=== PATIENT | male | born 1935 | race Caucasian/White ===

== ENCOUNTER 2016-07-13 16:15 | Inpatient (IN) | payer MEDICARE ==
[2016-07-13 16:16] VITALS: BMI 26.9
--- NOTE | 2016-07-13 16:24 | C.PDOC ---
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 ED ekg does not shows any st elevations. Pt currently without pain or any other complaints. Time Seen by Provider: 07/13/16 16:16 Chief Complaint (Nursing): Chest Pain History Per: Patient History/Exam Limitations: no limitations Onset/Duration Of Symptoms: Hrs Current Symptoms Are (Timing): Gone Severity: Moderate Quality: "Pain" Modifying Factors: None Nitro Therapy Administered: 1, Per EMS Recent travel outside of the [place]: No Past Medical History Reviewed: Historical Data, Nursing Documentation, Vital Signs Vital Signs: Last Vital Signs Temp 98 F 07/14/16 07:30 Pulse 73 07/14/16 07:30 Resp 20 07/14/16 07:30 BP 116/61 07/14/16 07:30 Pulse Ox 95 07/14/16 08:33 - Medical History PMH: Colonic Polyps, Diabetes, Gastritis, HTN, Hypercholesterolemia Surgical History: CABG, Coronary Stent - [facility] Procedures ESOPHAGOGASTRODUODENOSCOPY [EGD] W/CLOSED BIOPSY (05/01/13) Family History: States: Unknown Family Hx - Social History Hx Tobacco Use: No Hx Alcohol Use: No Hx Substance Use: No - Immunization History Hx Tetanus Toxoid Vaccination: No Hx Influenza Vaccination: Yes Hx Pneumococcal Vaccination: No Review Of Systems Except As Marked, All Systems Reviewed And Found Negative. Constitutional: Negative for: Fever Cardiovascular: Positive for: Chest Pain (currently resolved). Negative for: Palpitations Respiratory: Negative for: Shortness of Breath Gastrointestinal: Negative for: Vomiting Physical Exam - Physical Exam Appears: Non-toxic, No Acute Distress Skin: Warm, Dry, No Rash Head: Atraumatic, Normacephalic Nose: Normal Neck: Normal ROM, Supple Chest: Symmetrical Cardiovascular: Rhythm Regular, No Murmur Respiratory: Normal Breath Sounds, No Rales, No Rhonchi, No Wheezing Gastrointestinal/Abdominal: Soft, No Tenderness Extremity: Bilateral: Atraumatic Neurological/Psych: Oriented x3 ED Course And Treatment - Laboratory Results Result Diagrams: 07/13/16 16:30 07/13/16 16:30 ECG: Interpreted By Me, Viewed By Me Interpretation Of ECG: ST depressions anterior leads, no ST elevations Rate From EC (BPM) O2 Sat by Pulse Oximetry: 95 (on room air) Pulse Ox Interpretation: Normal Medical Decision Making Medical Decision Making: Discussed case with Mendel, will not activate code heart at this time as resolved symptoms, no elevations on ekg in er. . Plan: * EKG * CXR * labs * UA * IV fluids 536: case discussed with dr flores, requests dr heather pinzon to be admitting doctor. 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 pt remains pain free in er. Disposition - Disposition Disposition: HOSPITALIZED Disposition Time: 17:37 Condition: STABLE - Clinical Impression Clinical Impression: NSTEMI (non-ST elevated myocardial infarction) - Scribe Statement The provider has reviewed the documentation as recorded by the Iwonaibsamira Proctor Provider Attestation: All medical record entries made by the Scribe were at my direction and personally dictated by me. I have reviewed the chart and agree that the record accurately reflects my personal performance of the history, physical exam, medical decision making, and the department course for this patient. I have also personally directed, reviewed, and agree with the discharge instructions and disposition. Decision To Admit - Pt Status Changed To: Hospital Disposition Of: Inpatient - Admit Certification Admit to Inpatient:: After my assessment, the patient will require hospitalization for at least two midnights. This is because of the severity of symptoms shown, intensity of services needed, and/or the medical risk in this patient being treated as an outpatient. - InPatient: Physician Admission Certification: I certify that this patient requires 2 or more midnights of care for the following reason:: pt with nstemi, needs heparin , possible cath - . Bed Request Type: Telemetry Admitting Physician: Nely Pinzon Patient Diagnosis: NSTEMI (non-ST elevated myocardial infarction)
[2016-07-13 16:41] LABS: BASO % 0.2 % (0.0-2.0); EOS # 0.1 K/uL (0.0-0.7); HEMATOCRIT 39.7 % (35.0-51.0); LYMPH # 0.4 K/uL (1.0-4.3); LYMPH % 5.5 % (20.0-40.0); MEAN CELL VOLUME 91.9 fL (80.0-94.0); MEAN CORPUSCULAR HEMOGLOBIN 31.3 pg (27.0-31.0); MEAN CORPUSCULAR HGB CONC 34.1 g/dL (33.0-37.0); MEAN PLATELET VOLUME 6.8 fL (7.2-11.7); MONO # 0.4 K/uL (0.0-0.8); MONO % 5.4 % (0.0-10.0); PLATELET COUNT 136 K/uL (130-400); RED CELL DISTRIBUTION WIDTH 13.7 % (11.5-14.5)
[2016-07-13 16:42] LABS: CHLORIDE 99 mmol/L (98-107); POTASSIUM 3.7 mmol/L (3.6-5.2); SODIUM 139 mmol/L (132-148)
[2016-07-13 16:44] LABS: BILIRUBIN,TOTAL 0.4 mg/dL (0.2-1.3); CARBON DIOXIDE 23 mmol/L (22-30); GFR AFRICAN-AMERICAN > 60
[2016-07-13 16:45] LABS: ALB/GLOB RATIO 1.3 (1.0-2.1); ALKALINE PHOSPHATASE 66 U/L (38-126); ALT/SGPT 23 U/L (21-72); AST/SGOT 40 U/L (17-59); BLOOD UREA NITROGEN 16 mg/dL (9-20); CALCIUM 8.5 mg/dl (8.6-10.4); GLUCOSE,RANDOM 158 mg/dL (75-110); TOTAL PROTEIN 7.3 g/dL (6.3-8.3)
--- NOTE | 2016-07-13 16:47 | RAD ---
PROCEDURE: CHEST RADIOGRAPH, 1 VIEW HISTORY: chest pain COMPARISON: None available. FINDINGS: LUNGS: Clear. PLEURA: No pneumothorax or pleural fluid seen. CARDIOVASCULAR: Normal. OSSEOUS STRUCTURES: No significant abnormalities. VISUALIZED UPPER ABDOMEN: Normal. OTHER FINDINGS: None. IMPRESSION: No active disease.
[2016-07-13] MEDS ORDERED: Heparin25000 units/250ml 1/2NS 250 ML IV ONE ×2 (17:06→17:15)
[2016-07-13 17:31] LABS: NEUTROPHIL 80 % (50-75); TOTAL CELLS COUNTED 100
[2016-07-13 17:33] LABS: LARGE PLATELETS PRESENT
--- NOTE | 2016-07-13 21:36 | CP.PCM.CON ---
History of Present Illness - History of Present Illness History of Present Illness: 80 year old with DM, HTN, Mixed hyperlipidemia, WA ? 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 report of ST in the feild, none at ED, no further CP, mildly elevated TNI, good compliance , A1C, LIPIDS. dought [place], observe. yet TNI up to 45 for cath Review of Systems - Constitutional Constitutional: Weakness - EENT Eyes: absent: Discharge Ears: Decreased Hearing. absent: Ear Discharge, Dizziness Nose/Mouth/Throat: absent: Epistaxis - Cardiovascular Cardiovascular: Chest Pain. absent: Acrocyanosis, Diaphoresis, Leg Edema, Palpitations, Syncope - Respiratory Respiratory: absent: Cough, Dyspnea, Hemoptysis - Gastrointestinal Gastrointestinal: absent: Hematochezia, Vomiting - Genitourinary Genitourinary: Change in Urinary Stream Past Patient History - Past Medical History & Family History Past Medical History?: Yes - Past Social History Smoking Status: Former Smoker - CARDIAC Hx Hypercholesterolemia: Yes Hx Hypertension: Yes - PULMONARY Hx Respiratory Disorders: No - NEUROLOGICAL Hx Neurological Disorder: No - HEENT Hx HEENT Problems: Yes Hx Cataracts: Yes - RENAL Hx Chronic Kidney Disease: No - ENDOCRINE/METABOLIC Hx Endocrine Disorders: Yes Hx Diabetes Mellitus Type 2: Yes - HEMATOLOGICAL/ONCOLOGICAL Hx Blood Disorders: No - INTEGUMENTARY Hx Dermatological Problems: No - MUSCULOSKELETAL/RHEUMATOLOGICAL Hx Falls: No - GASTROINTESTINAL Hx Gastritis: Yes - GENITOURINARY/GYNECOLOGICAL Hx Genitourinary Disorders: Yes Hx Prostate Problems: Yes - PSYCHIATRIC Hx Substance Use: No - SURGICAL HISTORY Hx Coronary Artery Bypass Graft: Yes Hx Coronary Stent: Yes - ANESTHESIA Hx Anesthesia: Yes Hx Anesthesia Reactions: No Meds Allergies/Adverse Reactions: Allergies Allergy/AdvReac Type Severity Reaction Status Date / Time No Known Allergies Allergy Verified 08/05/15 08:13 - Medications Medications: Current Medications Aspirin (Aspirin Chewable) 81 mg PO DAILY [facility] Clopidogrel Bisulfate (Plavix) 75 mg PO DAILY [facility] Enoxaparin Sodium (Lovenox) 40 mg SC DAILY [facility] Famotidine (Pepcid) 20 mg PO DAILY [facility] Heparin Sodium/Sodium Chloride (Heparin 08332 Units/250ml 1/2 Normal Saline) 250 mls @ 9.6 mls/hr IV .Q24H ONE; 12 UNITS/KG/HR PRN Reason: Protocol Stop: 07/14/16 17:14 Last Admin: 07/13/16 17:27 Dose: 9.6 mls/hr Lisinopril (Zestril) 5 mg PO DAILY [facility] Metformin HCl (Glucophage) 500 mg PO BID [facility] Pneumococcal Polyvalent Vaccine (Pneumovax 23 Vaccine) 0.5 ml IM .ONCE ONE Stop: 07/16/16 10:01 Rosuvastatin Calcium (Crestor) 5 mg PO HS [facility] Physical Exam - Constitutional Appears: Non-toxic - Head Exam Head Exam: ATRAUMATIC - Eye Exam Eye Exam: EOMI - ENT Exam ENT Exam: Mucous Membranes Moist - Neck Exam Neck exam: Negative for: Lymphadenopathy, Thyromegaly - Respiratory Exam Respiratory Exam: Clear to Auscultation Bilateral. absent: Rales - Cardiovascular Exam Cardiovascular Exam: REGULAR RHYTHM, Systolic Murmur - GI/Abdominal Exam GI & Abdominal Exam: Normal Bowel Sounds. absent: Organomegaly - Rectal Exam Rectal Exam: Deferred - Extremities Exam Extremities exam: Positive for: normal capillary refill. Negative for: calf tenderness - Neurological Exam Neurological exam: Alert, Oriented x3 - Psychiatric Exam Psychiatric exam: Normal Affect - Skin Skin Exam: Dry Results - Vital Signs Recent Vital Signs: Last Vital Signs Temp 97.9 F 07/13/16 20:56 Pulse 81 07/13/16 20:56 Resp 20 07/13/16 20:56 BP 130/74 07/13/16 20:56 Pulse Ox 94 L 07/13/16 20:56 - Labs Result Diagrams: 07/13/16 16:30 07/13/16 16:30 Labs: Laboratory Results - last 24 hr 07/13/16 20:59 POC Glucose (mg/dL) 197 H Assessment & Plan (1) Elevated troponin I measurement Status: Acute Comment: acute NTEMI (2) Diabetes 1.5, managed as type 2 Status: Chronic (3) Hypertension Status: Chronic
[2016-07-13 22:34] LABS: RBC URINE 2 /hpf (0-3); URINE BILIRUBIN NEGATIVE (NEGATIVE); URINE BLOOD NEGATIVE (NEGATIVE); URINE COLOR Yellow (YELLOW); URINE GLUCOSE (UA) NORMAL (Normal); URINE KETONE NEGATIVE (NEGATIVE); URINE LEUKOCYTE ESTERASE NEG Leu/uL (Negative); URINE PROTEIN NEGATIVE (NEGATIVE); URINE UROBILINOGEN NORMAL mg/dL (0.2-1.0); WBC URINE 2 /hpf (0-5)
[2016-07-14] MEDS ORDERED: Aluminum Hydroxide/Magnesium Hydroxide Susp (30 mL) PO ONE (00:15)
[2016-07-14] MEDS ORDERED: Heparin25000 units/250ml 1/2NS 250 ML IV ONE ×2 (02:15→16:30)
[2016-07-14] MEDS ORDERED: Enoxaparin 40 mg Syringe SC SCH (10:00)
[2016-07-14 11:29] LABS: THYROID STIMULATING HORMONE 0.94 mIU/L (0.46-4.68)
--- NOTE | 2016-07-14 14:41 | CARDCATH ---
PROCEDURE DATE: 07/14/2016 The patient is a 80-year-old [place]cu[place] male who has history of hypertension, diabetes mellitus, nieves ry artery disease with stenting to the LAD and the right coronary artery many years ago. He presents because of chest discomfort after cleaning snow from his window. [id number] myocardial infarc tion is ruled in. Cardiac catheterization was recommended. The procedure and its risks fully explai staci to the patient who understood them and agreed for the procedure. PROCEDURES: Left and right coronary angiography were performed with 6-Ethiopian JL4 and JR4 diagnostic catheter. Left ventriculogram and aortogram were performed with 6-Ethiopian pigtail catheter. The fernando ent tolerated the procedure well. ANGIOGRAPHIC FINDINGS: Selective injection of left coronary artery revealed a minimal narrowing of t he left main that bifurcated into medium sized LAD and medium sized codominant circumflex artery. Th e LAD had 80% proximal stenosis just before the stent in the mid LAD. The first and second diagonal branch ostia had 80% stenosis. The first septal electrotype caster had critical stenosis in its ostium. The circumflex artery had a complex critical lesion involving its entire middle segment and involving th e second and third obtuse marginal branches. This appears to be the culprit lesion for the patient's recent acute myocardial infarction. Selective injection of right coronary artery revealed a medium- sized dominant vessel that has insignificant proximal narrowing with patent distal stent. Left ventr iculogram performed in [place]LL projection revealed inferior wall hypokinesis. Overall, ejection fraction estimated at 50%. Aortography performed in SERBIAN projection revealed no evidence of aortic insufficie ncy or dissection. CONCLUSION: 1. 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 It is the culprit lesion for the recent acute myocardial infarction. 2. An 80% stenosis of the proximal left anterior descending just before the mid left anterior descen ding stent involving the ostium of the first diagonal branch. RECOMMENDATIONS: The case will be discussed with Dr. Min, the primary warehouse trainer. The choice b etween coronary intervention on the circumflex artery or a bypass surgery for the LAD, circumflex, di agonal and obtuse marginal branches. Garett Diggs MD cc:Veronica Min MD [id number] TT: 07/14/2016 14:40:13 mn
--- NOTE | 2016-07-14 17:32 | CP.PCM.PN ---
Subjective - Date & Time of Evaluation Date of Evaluation: 07/14/16 Time of Evaluation: 09:00 - Subjective Subjective: Dr. Richie Lee service Patient is seen and examined in room with family members present. He says he currently has some mild chest discomfort however his pain before he came to the hospital was much worse. He has had 2 previous heart attacks, the last one 10 years ago and the first one 23 years ago both times happening in [place]. He has had stents placed each time. He currently denies shortness of breath, palpitations, lower leg swelling, diaphoresis, nausea, or vomiting. Objective - Vital Signs/Intake and Output Vital Signs (last 24 hours): Temp Pulse Resp BP Pulse Ox 98.9 F 66 25 H 112/52 L 93 L 07/14/16 15:40 07/14/16 15:47 07/14/16 15:47 07/14/16 15:48 07/14/16 15:47 Intake and Output: 07/14/16 07/14/16 06:59 18:59 Intake Total 504.8 300 Output Total 700 Balance -195.2 300 - Medications Medications: Current Medications Aspirin (Aspirin Chewable) 81 mg PO DAILY [facility] Last Admin: 07/14/16 10:35 Dose: 81 mg Clopidogrel Bisulfate (Plavix) 75 mg PO DAILY [facility] Last Admin: 07/14/16 10:30 Dose: 75 mg Famotidine (Pepcid) 20 mg PO DAILY [facility] Last Admin: 07/14/16 10:30 Dose: 20 mg Heparin Sodium/Sodium Chloride (Heparin 77750 Units/250ml 1/2 Normal Saline) 250 mls @ 5.879 mls/hr IV .Q24H ONE; 9 UNITS/KG/HR PRN Reason: Protocol Stop: 07/15/16 16:29 Last Admin: 07/14/16 16:26 Dose: 5.879 mls/hr Lisinopril (Zestril) 5 mg PO DAILY [facility] Last Admin: 07/14/16 10:33 Dose: 5 mg Pneumococcal Polyvalent Vaccine (Pneumovax 23 Vaccine) 0.5 ml IM .ONCE ONE Stop: 07/16/16 10:01 Rosuvastatin Calcium (Crestor) 5 mg PO HS [facility] - Labs Labs: PT 11.4 SECONDS (9.7-12.2) 07/13/16 16:30 INR 1.0 07/13/16 16:30 APTT 55 SECONDS (21-34) H D 07/14/16 10:34 - Constitutional Appears: Non-toxic, No Acute Distress - Head Exam Head Exam: NORMAL INSPECTION - Eye Exam Eye Exam: Normal appearance, PERRL Pupil Exam: NORMAL ACCOMODATION - ENT Exam ENT Exam: Normal Exam - Respiratory Exam Respiratory Exam: Clear to Ausculation Bilateral. absent: Rales, Rhonchi, Wheezes - Cardiovascular Exam Cardiovascular Exam: REGULAR RHYTHM, RRR, +S1, +S2. 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 He is on Aspirin and Plavix as well. Crestor 5mg Status: Acute (2) Hypertension Assessment & Plan: Lisinopril for BP control Status: Chronic (3) Prophylactic measure Status: Acute
--- NOTE | 2016-07-14 18:10 | CP.PCM.CON ---
<Marc Ambrose - Last Filed: 07/14/16 20:27> History of Present Illness - History of Present Illness History of Present Illness: CRITICAL CARE PROGRESS NOTE HPI: 80 M with past medical history of HTN, DM, CAD, BPH and OR with stents to the LAD and right coronary artery placed approximately 1992 and 2001 presented with diaphoresis and intermittent chest discomfort after clearing snow from window 07/13. Patient states that he has had two heart attacks in the past where he initially presented with diaphoresis and thus on this present occasion , he knew that something was wrong. Patient denies dyspnea, shortness of breath , palpitations, paresthesias, radiation of pain, nausea, vomiting, diarrhea, constipation or headaches at this time. PMHx- as mentioned above PSHx- as mentioned above Fam hx- Mom had cancer, dad had liver cancer, sister has bone cancer and DM Meds- unknown Allergies- NKDA PMD- unknown In the ED: EKG showed NSR @ 64 bpm with inferior infarct of undetermined age. Angiogram ruled in NSTEMI. Left and right coronary angiography was done by Dr. Diggs with a 6 Bruneian JL4 and JR4 diagnostic catheter. Ejection fraction is estimated to be 50%. Review of Systems - Constitutional Constitutional: absent: Night Sweats, Snoring - EENT Eyes: absent: Change in Vision Nose/Mouth/Throat: absent: Nasal Congestion, Nasal Discharge - Cardiovascular Cardiovascular: Chest Pain, Diaphoresis. absent: Chest Pain at Rest - Respiratory Respiratory: absent: Cough, Dyspnea, Wheezing - Gastrointestinal Gastrointestinal: Bloating - Musculoskeletal Musculoskeletal: absent: Arthralgias, Back Pain - Neurological Neurological: absent: Abnormal Gait, Abnormal Hearing - Psychiatric Psychiatric: absent: Abnormal Sleep Pattern - Endocrine Endocrine: absent: Change in Body Appearance Past Patient History - Past Medical History & Family History Past Medical History?: Yes - Past Social History Smoking Status: Former Smoker - CARDIAC Hx Hypercholesterolemia: Yes Hx Hypertension: Yes - PULMONARY Hx Respiratory Disorders: No - NEUROLOGICAL Hx Neurological Disorder: No - HEENT Hx HEENT Problems: Yes Hx Cataracts: Yes - RENAL Hx Chronic Kidney Disease: No - ENDOCRINE/METABOLIC Hx Endocrine Disorders: Yes Hx Diabetes Mellitus Type 2: Yes - HEMATOLOGICAL/ONCOLOGICAL Hx Blood Disorders: No - INTEGUMENTARY Hx Dermatological Problems: No - MUSCULOSKELETAL/RHEUMATOLOGICAL Hx Falls: No - GASTROINTESTINAL Hx Gastritis: Yes - GENITOURINARY/GYNECOLOGICAL Hx Genitourinary Disorders: Yes Hx Prostate Problems: Yes - PSYCHIATRIC Hx Substance Use: No - SURGICAL HISTORY Hx Coronary Artery Bypass Graft: Yes Hx Coronary Stent: Yes - ANESTHESIA Hx Anesthesia: Yes Hx Anesthesia Reactions: No Meds Allergies/Adverse Reactions: Allergies Allergy/AdvReac Type Severity Reaction Status Date / Time No Known Allergies Allergy Verified 08/05/15 08:13 - Medications Medications: Current Medications Aspirin (Aspirin Chewable) [address] [facility] Last Admin: 07/14/16 10:35 Dose: 81 mg Clopidogrel Bisulfate (Plavix) [address] [facility] Last Admin: 07/14/16 10:30 Dose: 75 mg Famotidine (Pepcid) [address] [facility] Last Admin: 07/14/16 10:30 Dose: 20 mg Heparin Sodium/Sodium Chloride (Heparin 63009 Units/250ml 1/2 Normal Saline) 250 mls @ 5.879 mls/hr IV .Q24H ONE; 9 UNITS/KG/HR PRN Reason: Protocol Stop: 07/15/16 16:29 Last Admin: 07/14/16 16:26 Dose: 5.879 mls/hr Lisinopril (Zestril) [address] [facility] Last Admin: 07/14/16 10:33 Dose: 5 mg Pneumococcal Polyvalent Vaccine (Pneumovax 23 Vaccine) 0.5 ml IM .ONCE ONE Stop: 07/16/16 10:01 Rosuvastatin Calcium (Crestor) 5 mg PO [facility] Physical Exam - Constitutional Appears: Non-toxic, No Acute Distress - Head Exam Head Exam: ATRAUMATIC, NORMAL INSPECTION, NORMOCEPHALIC - Eye Exam Eye Exam: EOMI, Normal appearance, PERRL Pupil Exam: NORMAL ACCOMODATION - ENT Exam ENT Exam: Mucous Membranes Moist - Neck Exam Neck exam: Positive for: Full Rom - Respiratory Exam Respiratory Exam: NORMAL BREATHING PATTERN. absent: Wheezes - Cardiovascular Exam Cardiovascular Exam: REGULAR RHYTHM, +S1, +S2 - GI/Abdominal Exam GI & Abdominal Exam: Hyperactive Bowel Sounds, Soft. absent: Distended, Firm, Guarding - Extremities Exam Extremities exam: Positive for: full ROM, normal capillary refill, tenderness, pedal pulses present - Neurological Exam Neurological exam: Alert, CN II-XII Intact, Oriented x3 - Psychiatric Exam Psychiatric exam: Normal Affect, Normal Mood - Skin Skin Exam: Dry, Normal Color, Warm Results - Vital Signs Recent Vital Signs: Last Vital Signs Temp 98.6 F 07/14/16 17:55 Pulse 87 07/14/16 18:00 Resp 13 07/14/16 18:00 BP 100/47 L 07/14/16 18:00 Pulse Ox 95 07/14/16 18:00 - Labs Result Diagrams: 07/13/16 16:30 07/13/16 16:30 Labs: Laboratory Results - last 24 hr 07/13/16 07/13/16 07/14/16 20:59 22:22 00:05 APTT 123 H* D POC Glucose (mg/dL) 197 H Hemoglobin A1c Phosphorus Magnesium Total Creatine Kinase 2603 H CK-MB (Mass) 197 H Troponin I, Quant 46.1000 H* Free T4 TSH 3rd Generation Urine Color Yellow Urine Clarity Clear Urine pH 5.0 Ur Specific [place] 1.026 Urine Protein Negative Urine Glucose (UA) Normal Urine Ketones Negative Urine Blood Negative Urine Nitrate Negative Urine Bilirubin Negative Urine Urobilinogen Normal Ur Leukocyte Esterase Neg Urine WBC (Auto) 2 Urine RBC (Auto) 2 07/14/16 07/14/16 07/14/16 06:17 10:34 11:23 APTT 55 H D POC Glucose (mg/dL) 128 H 107 Hemoglobin A1c 6.4 Phosphorus 3.0 Magnesium 2.0 Total Creatine Kinase 1151 H CK-MB (Mass) 97.0 H Troponin I, Quant 32.3000 H* Free T4 0.84 TSH 3rd Generation 0.94 Urine Color Urine Clarity Urine pH Ur Specific [place] Urine Protein Urine Glucose (UA) Urine Ketones Urine Blood Urine Nitrate Urine Bilirubin Urine Urobilinogen Ur Leukocyte Esterase Urine WBC (Auto) Urine RBC (Auto) Assessment & Plan - Assessment and Plan (Free Text) Assessment: Patient is a 80 M with extensive cardiac history inclusive of two prior stents to the LAD and right coronary artery presents with diaphoresis and chest discomfort. Patient s/p angiogram with findings of a complex lesion of the entire mid-circumflex artery segment and 80% stenosis of proximal LAD before the mid LAD stent. Estimated EF of 50%. Patient admitted to the ICU for close monitoring. Plan: Neuro: Neurochecks q6 Cardio: HTN Possible NSTEMI Troponin I 46.1000>32.3000 CK-MB 197>97.0 Creatine Kinase 2603>1151 Procedures: 07/14 Angiogram: Dr. Diggs - Complex lesion of the entire mid- circumflex artery segment. 80% stenosis of proximal LAD before the mid LAD stent involving the ostium of the first diagonal branch. Estimated EF 50% Imagin/16 EKG: NSR @ 64 bpm with inferior infarct of undetermined age. 07/[address] Min report of ST in the field. Non at the ED. No further CP, mildly elevated TNI, good compliance, A1c, lipids, doubt OR, observe. Crestor 5 mg PO HS [facility], Lopressor 25 mg BID ( hold parameters for systolic below 100 and HR below 60),Zestril 5 mg PO daily Cardiology on board- F/U recommendations Pulmonary: Maintain O2 Sat >92% Endo: HbA1c 6.4 Maintain euglycemia Novolin sliding scale Acchucheck q4 GI: Diabetic Diet : I/Os 504.8/700 = -195.2 (not 24H) Monitor I/Os Renal: BUN/Cr: 16/0.6 (07/13) Monitor I/Os Daily CMP Heme: PTT: 123>55 Daily CBC MSK: Monitor angiography entrance site for signs of hematoma, drainage, erythema, or infection. Dressing changes Prophylaxis: DVT: ASA 82 mg PO daily, Clopidogrel 75mg PO daily, Heparin drip, NS 250 cc @ 7.2 cc/hr IV Q24H GI: Protonix daily <Tarik Frost - Last Filed: 07/21/16 01:07> Results - Vital Signs Recent Vital Signs: Last Vital Signs Temp 97.3 F L 07/18/16 12:00 Pulse 67 07/18/16 15:00 Resp 17 07/18/16 15:00 BP 101/57 L 07/18/16 14:52 Pulse Ox 97 07/18/16 15:00 - Labs Result Diagrams: 07/18/16 06:30 07/18/16 06:30 Attending/Attestation - Attestation I have personally seen and examined this patient.: Yes I have fully participated in the care of the patient.: Yes I have reviewed all pertinent clinical information: Yes Notes (Text): Today: Thursday, July 14, 2016 The Patient was seen and examined at the bedside, Medical records reviewed, all clinical/lab/hemodynamic/radiographic data were reviewed and management issues were discussed and formulated, Events reviewed Pain issues, skin care, head of the bed elevation, glycemic control were addressed Agree with above treatment plans as transcribed in Dr. Halie whittaker
--- NOTE | 2016-07-14 18:27 | CP.PCM.PN ---
Subjective - Date & Time of Evaluation Date of Evaluation: 07/14/16 Time of Evaluation: 12:00 - Subjective Subjective: clinically same Objective - Vital Signs/Intake and Output Vital Signs (last 24 hours): Temp Pulse Resp BP Pulse Ox 98.6 F 87 13 100/47 L 95 07/14/16 17:55 07/14/16 18:00 07/14/16 18:00 07/14/16 18:00 07/14/16 18:00 Intake and Output: 07/14/16 07/14/16 06:59 18:59 Intake Total 504.8 411.8 Output Total 700 150 Balance -195.2 261.8 - Medications Medications: Current Medications Aspirin (Aspirin Chewable) 81 mg PO DAILY [facility] Last Admin: 07/14/16 10:35 Dose: 81 mg Clopidogrel Bisulfate (Plavix) 75 mg PO DAILY [facility] Last Admin: 07/14/16 10:30 Dose: 75 mg Docusate Sodium (Colace) 100 mg PO DAILY [facility] Heparin Sodium/Sodium Chloride (Heparin 73081 Units/250ml 1/2 Normal Saline) 250 mls @ 5.879 mls/hr IV .Q24H ONE; 9 UNITS/KG/HR PRN Reason: Protocol Stop: 07/15/16 16:29 Last Admin: 07/14/16 16:26 Dose: 5.879 mls/hr Lisinopril (Zestril) 5 mg PO DAILY [facility] Last Admin: 07/14/16 10:33 Dose: 5 mg Metoprolol Tartrate (Lopressor) 25 mg PO BID [facility] Pantoprazole Sodium (Protonix Ec Tab) 40 mg PO DAILY [facility] Pneumococcal Polyvalent Vaccine (Pneumovax 23 Vaccine) 0.5 ml IM .ONCE ONE Stop: 07/16/16 10:01 Rosuvastatin Calcium (Crestor) 5 mg PO HS [facility] - Labs Labs: PT 11.4 SECONDS (9.7-12.2) 07/13/16 16:30 INR 1.0 07/13/16 16:30 APTT 55 SECONDS (21-34) H D 07/14/16 10:34 - Constitutional Appears: Well - Head Exam Head Exam: ATRAUMATIC, NORMAL INSPECTION, NORMOCEPHALIC - Eye Exam Eye Exam: EOMI, Normal appearance, PERRL Pupil Exam: NORMAL ACCOMODATION, PERRL - ENT Exam ENT Exam: Mucous Membranes Moist, Normal Exam - Neck Exam Neck Exam: Full ROM, Normal Inspection. absent: Lymphadenopathy - Respiratory Exam Respiratory Exam: Decreased Breath Sounds - Cardiovascular Exam Cardiovascular Exam: REGULAR RHYTHM, +S1, +S2 - GI/Abdominal Exam GI & Abdominal Exam: Soft, Diminished Bowel Sounds - Rectal Exam Rectal Exam: Deferred
--- NOTE | 2016-07-14 18:36 | CP.PCM.PN ---
Subjective - Date & Time of Evaluation Date of Evaluation: 07/14/16 Time of Evaluation: 12:00 - Subjective Subjective: NSTEMI cath with diseased LAD and Circ now ICU for intervention Objective - Vital Signs/Intake and Output Vital Signs (last 24 hours): Temp Pulse Resp BP Pulse Ox 98.6 F 87 13 100/47 L 95 07/14/16 17:55 07/14/16 18:00 07/14/16 18:00 07/14/16 18:00 07/14/16 18:00 Intake and Output: 07/14/16 07/14/16 06:59 18:59 Intake Total 504.8 411.8 Output Total 700 150 Balance -195.2 261.8 - Medications Medications: Current Medications Aspirin (Aspirin Chewable) 81 mg PO DAILY [facility] Last Admin: 07/14/16 10:35 Dose: 81 mg Clopidogrel Bisulfate (Plavix) 75 mg PO DAILY [facility] Last Admin: 07/14/16 10:30 Dose: 75 mg Docusate Sodium (Colace) 100 mg PO DAILY [facility] Heparin Sodium/Sodium Chloride (Heparin 37216 Units/250ml 1/2 Normal Saline) 250 mls @ 5.879 mls/hr IV .Q24H ONE; 9 UNITS/KG/HR PRN Reason: Protocol Stop: 07/15/16 16:29 Last Admin: 07/14/16 16:26 Dose: 5.879 mls/hr Lisinopril (Zestril) 5 mg PO DAILY [facility] Last Admin: 07/14/16 10:33 Dose: 5 mg Metoprolol Tartrate (Lopressor) 25 mg PO BID [facility] Pantoprazole Sodium (Protonix Ec Tab) 40 mg PO DAILY [facility] Pneumococcal Polyvalent Vaccine (Pneumovax 23 Vaccine) 0.5 ml IM .ONCE ONE Stop: 07/16/16 10:01 Rosuvastatin Calcium (Crestor) 5 mg PO HS [facility] - Labs Labs: PT 11.4 SECONDS (9.7-12.2) 07/13/16 16:30 INR 1.0 07/13/16 16:30 APTT 55 SECONDS (21-34) H D 07/14/16 10:34 - Constitutional Appears: Non-toxic - Head Exam Head Exam: ATRAUMATIC - Eye Exam Eye Exam: EOMI - ENT Exam ENT Exam: Mucous Membranes Moist - Neck Exam Neck Exam: absent: Lymphadenopathy, Thyromegaly - Respiratory Exam Respiratory Exam: Clear to Ausculation Bilateral. absent: Rales - Cardiovascular Exam Cardiovascular Exam: REGULAR RHYTHM, Murmur - GI/Abdominal Exam GI & Abdominal Exam: Normal Bowel Sounds. absent: Organomegaly - Rectal Exam Rectal Exam: Deferred - Extremities Exam Extremities Exam: Normal Capillary Refill. absent: Calf Tenderness - Neurological Exam Neurological Exam: Alert, Oriented x3 - Psychiatric Exam Psychiatric exam: Normal Affect - Skin Skin Exam: Dry Assessment and Plan (1) Elevated troponin I measurement Status: Acute (2) Diabetes 1.5, managed as type 2 Status: Chronic (3) Hypertension Status: Chronic
[2016-07-15 06:45] LABS: BASO % 0.2 % (0.0-2.0); EOS # 0.1 K/uL (0.0-0.7); HEMATOCRIT 40.7 % (35.0-51.0); LYMPH # 0.9 K/uL (1.0-4.3); LYMPH % 17.3 % (20.0-40.0); MEAN CELL VOLUME 92.3 fL (80.0-94.0); MEAN CORPUSCULAR HEMOGLOBIN 31.5 pg (27.0-31.0); MEAN CORPUSCULAR HGB CONC 34.2 g/dL (33.0-37.0); MONO # 0.5 K/uL (0.0-0.8); MONO % 10.7 % (0.0-10.0); RED CELL DISTRIBUTION WIDTH 13.9 % (11.5-14.5); WHITE BLOOD COUNT 5.1 K/uL (4.8-10.8)
[2016-07-15 07:06] LABS: CHLORIDE 101 mmol/L (98-107)
[2016-07-15 07:07] LABS: POTASSIUM 3.6 mmol/L (3.6-5.2); SODIUM 136 mmol/L (132-148)
[2016-07-15 07:09] LABS: BILIRUBIN,TOTAL 0.5 mg/dL (0.2-1.3); GFR AFRICAN-AMERICAN > 60
[2016-07-15 07:10] LABS: ALB/GLOB RATIO 1.1 (1.0-2.1); ALKALINE PHOSPHATASE 58 U/L (38-126); ALT/SGPT 43 U/L (21-72); AST/SGOT 122 U/L (17-59); BLOOD UREA NITROGEN 11 mg/dL (9-20); CALCIUM 8.5 mg/dl (8.6-10.4); CARBON DIOXIDE 26 mmol/L (22-30); GLUCOSE,RANDOM 99 mg/dL (75-110); PHOSPHOROUS 2.6 mg/dL (2.5-4.5); TOTAL PROTEIN 6.6 g/dL (6.3-8.3)
[2016-07-15] MEDS: Pantoprazole 40 mg EC Tab PO SCH (09:08)
[2016-07-15] MEDS ORDERED: Potassium Chloride 20 mEq ER Tab PO ONE (10:15)
--- NOTE | 2016-07-15 14:40 | CP.PCM.PN ---
Subjective - Date & Time of Evaluation Date of Evaluation: 07/15/16 Time of Evaluation: 11:20 - Subjective Subjective: clinically same Objective - Vital Signs/Intake and Output Vital Signs (last 24 hours): Temp Pulse Resp BP Pulse Ox 99.2 F 88 26 H 107/64 94 L 07/15/16 12:00 07/15/16 13:01 07/15/16 13:01 07/15/16 13:01 07/15/16 13:01 Intake and Output: 07/15/16 07/15/16 06:59 18:59 Intake Total 170.8 411.3 Output Total 500 250 Balance -329.2 161.3 - Medications Medications: Current Medications Aspirin (Aspirin Chewable) 81 mg PO DAILY [facility] Last Admin: 07/15/16 09:09 Dose: 81 mg Clopidogrel Bisulfate (Plavix) 75 mg PO DAILY [facility] Last Admin: 07/15/16 09:09 Dose: 75 mg Docusate Sodium (Colace) 100 mg PO DAILY [facility] Last Admin: 07/15/16 09:08 Dose: 100 mg Heparin Sodium/Sodium Chloride (Heparin 31008 Units/250ml 1/2 Normal Saline) 250 mls @ 5.879 mls/hr IV .Q24H ONE; 9 UNITS/KG/HR PRN Reason: Protocol Stop: 07/15/16 16:29 Last Admin: 07/14/16 16:26 Dose: 5.879 mls/hr Lisinopril (Zestril) 5 mg PO DAILY [facility] Last Admin: 07/15/16 09:08 Dose: 5 mg Metoprolol Tartrate (Lopressor) 25 mg PO BID [facility] Last Admin: 07/15/16 09:09 Dose: 25 mg Pantoprazole Sodium (Protonix Ec Tab) 40 mg PO DAILY [facility] Last Admin: 07/15/16 09:08 Dose: 40 mg Pneumococcal Polyvalent Vaccine (Pneumovax 23 Vaccine) 0.5 ml IM .ONCE ONE Stop: 07/16/16 10:01 Rosuvastatin Calcium (Crestor) 5 mg PO HS [facility] Last Admin: 07/14/16 21:40 Dose: 5 mg - Labs Labs: 07/15/16 06:36 07/15/16 06:36 PT 11.4 SECONDS (9.7-12.2) 07/13/16 16:30 INR 1.0 07/13/16 16:30 APTT 45 SECONDS (21-34) H 07/15/16 06:36 - Constitutional Appears: Well - Head Exam Head Exam: ATRAUMATIC, NORMAL INSPECTION, NORMOCEPHALIC - Eye Exam Eye Exam: EOMI, Normal appearance, PERRL Pupil Exam: NORMAL ACCOMODATION, PERRL - ENT Exam ENT Exam: Mucous Membranes Moist, Normal Exam - Neck Exam Neck Exam: Full ROM, Normal Inspection. absent: Lymphadenopathy - Respiratory Exam Respiratory Exam: Decreased Breath Sounds - Cardiovascular Exam Cardiovascular Exam: REGULAR RHYTHM, +S1, +S2 - GI/Abdominal Exam GI & Abdominal Exam: Soft, Diminished Bowel Sounds - Rectal Exam Rectal Exam: Deferred
--- NOTE | 2016-07-15 17:01 | PN ---
DATE: 07/15/2016 The patient denies any chest pain or shortness of breath. No reported groin bleeding. No reported v entricular arrhythmia. VITAL SIGNS: Blood pressure 106/57, heart rate 72, temperature 98.7, respiration 27. HENT: Normocephalic. NECK: No JVD. CHEST: Clear. HEART: S1, S2 regular. EXTREMITIES: No edema. LABORATORIES: Today's SMA-7 is within normal limits except for creatinine of 0.7, calcium is 8.5. ASSESSMENT: 1. 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 2. Diabetes mellitus and hypertension. RECOMMENDATIONS: Continue current aspirin 81 mg once a day, Crestor at 5 mg once a day, Lopressor 25 mg once a day, Restoril at 5 mg once a day. Start Plavix 75 mg orally once a day. The case was discussed with Dr. Min, and recommendation was to perform PCI to circumflex artery M on at [facility]. Garett Diggs MD cc: [id number] TT: 07/15/2016 17:00:01 Confirmation # [id number] Dictation # [id number]
--- NOTE | 2016-07-15 17:52 | CP.PCM.PN ---
Subjective - Date & Time of Evaluation Date of Evaluation: 07/15/16 Time of Evaluation: 14:00 - Subjective Subjective: no CP on heparin, PCI at [facility] [place] Circ on Mond Objective - Vital Signs/Intake and Output Vital Signs (last 24 hours): Temp Pulse Resp BP Pulse Ox 98.7 F 84 13 104/57 L 93 L 07/15/16 16:00 07/15/16 17:00 07/15/16 17:00 07/15/16 17:00 07/15/16 17:00 Intake and Output: 07/15/16 07/15/16 06:59 18:59 Intake Total 170.8 554.9 Output Total 500 850 Balance -329.2 -295.1 - Medications Medications: Current Medications Aspirin (Aspirin Chewable) 81 mg PO DAILY [facility] Last Admin: 07/15/16 09:09 Dose: 81 mg Clopidogrel Bisulfate (Plavix) 75 mg PO DAILY [facility] Last Admin: 07/15/16 09:09 Dose: 75 mg Docusate Sodium (Colace) 100 mg PO DAILY [facility] Last Admin: 07/15/16 09:08 Dose: 100 mg Lisinopril (Zestril) 5 mg PO DAILY [facility] Last Admin: 07/15/16 09:08 Dose: 5 mg Metoprolol Tartrate (Lopressor) 25 mg PO BID [facility] Last Admin: 07/15/16 09:09 Dose: 25 mg Pantoprazole Sodium (Protonix Ec Tab) 40 mg PO DAILY [facility] Last Admin: 07/15/16 09:08 Dose: 40 mg Pneumococcal Polyvalent Vaccine (Pneumovax 23 Vaccine) 0.5 ml IM .ONCE ONE Stop: 07/16/16 10:01 Rosuvastatin Calcium (Crestor) 5 mg PO [facility] Last Admin: 07/14/16 21:40 Dose: 5 mg - Labs Labs: 07/15/16 06:36 07/15/16 06:36 PT 11.4 SECONDS (9.7-12.2) 07/13/16 16:30 INR 1.0 07/13/16 16:30 APTT 45 SECONDS (21-34) H 07/15/16 06:36 - Constitutional Appears: Non-toxic - Head Exam Head Exam: ATRAUMATIC - Eye Exam Eye Exam: EOMI - ENT Exam ENT Exam: Mucous Membranes Moist - Neck Exam Neck Exam: absent: Lymphadenopathy, Thyromegaly - Respiratory Exam Respiratory Exam: absent: Rales - Cardiovascular Exam Cardiovascular Exam: REGULAR RHYTHM, Murmur - GI/Abdominal Exam GI & Abdominal Exam: Normal Bowel Sounds. absent: Organomegaly - Rectal Exam Rectal Exam: Deferred - Extremities Exam Extremities Exam: Normal Capillary Refill. absent: Calf Tenderness - Neurological Exam Neurological Exam: Alert, Oriented x3 - Psychiatric Exam Psychiatric exam: Normal Mood - Skin Skin Exam: Dry Assessment and Plan (1) Elevated troponin I measurement Status: Acute (2) Diabetes 1.5, managed as type 2 Status: Chronic (3) Hypertension Status: Chronic
--- NOTE | 2016-07-15 22:24 | CP.CCUPN ---
CCU Subjective - Physician Review Events Since Last Encounter (Free Text): 07/15/16 22:20 Patient is a 80 M with extensive cardiac history inclusive of two prior stents to the LAD and right coronary artery presents with diaphoresis and chest discomfort. Patient s/p angiogram with findings of a complex lesion of the entire mid-circumflex artery segment and 80% stenosis of proximal LAD before the mid LAD stent. Estimated EF of 50%. Patient admitted to the ICU for close monitoring. Patient lying comfortably in no acute distress Denies shortness of breath, denies chest pain Possible transfer to [facility] on Sunday CCU Objective - Vital Signs / Intake & Output Vital Signs (Last 4 hours): Vital Signs Pulse Resp BP Pulse Ox 07/15/16 20:00 78 30 H 97/35 L 91 L 07/15/16 19:03 79 30 H 91 L 07/15/16 19:00 80 20 93/44 L 92 L 07/15/16 18:21 85 22 105/62 92 L Intake and Output (Last 8hrs): Intake & Output 07/15/16 07/15/16 07/15/16 06:59 14:59 22:59 Intake Total 47.2 417.2 355.4 Output Total 400 450 700 Balance -352.8 -32.8 -344.6 Weight 144 lb Intake: Intake, IV Amount 47.2 47.2 35.4 Left Forearm 47.2 47.2 35.4 Oral 370 320 Output: Urine 400 450 700 Urine, Voided 400 450 700 Other: # Voids Urine, Voided 1 1 1 # Bowel Movements 1 0 0 - Physical Exam Head: Positive for: Atraumatic, Normocephalic Pupils: Positive for: PERRL Extroacular Muscles: Positive for: EOMI Conjunctiva: Positive for: Normal Mouth: Positive for: Moist Mucous Membranes Neck: Positive for: Normal Range of Motion Respiratory/Chest: Positive for: Clear to Auscultation Cardiovascular: Positive for: Regular Rate and Rhythm Abdomen: Positive for: Normal Bowel Sounds Upper Extremity: Positive for: Normal Inspection Lower Extremity: Positive for: Normal Inspection Psychiatric: Positive for: Alert, Oriented x 3 - Medications Active Medications: Active Medications Generic Name Dose Route Start Last Admin Trade Name Freq PRN Reason Stop Dose Admin Aspirin 81 mg 07/14/16 10:00 07/15/16 09:09 Aspirin Chewable PO 81 mg DAILY [facility] Administration Clopidogrel Bisulfate 75 mg 07/14/16 10:00 07/15/16 09:09 Plavix PO 75 mg DAILY [facility] Administration Docusate Sodium 100 mg 07/15/16 10:00 07/15/16 09:08 Colace PO 100 mg DAILY [facility] Administration Lisinopril 5 mg 07/14/16 10:00 07/15/16 09:08 Zestril PO 5 mg DAILY [facility] Administration Metoprolol Tartrate 25 mg 07/15/16 10:00 07/15/16 17:53 Lopressor PO 25 mg BID [facility] Administration Pantoprazole Sodium 40 mg 07/15/16 10:00 07/15/16 09:08 Protonix Ec Tab PO 40 mg DAILY [facility] Administration Pneumococcal Polyvalent Vaccine 0.5 ml 07/16/16 10:00 Pneumovax 23 Vaccine IM 07/16/16 10:01 .ONCE ONE Rosuvastatin Calcium 5 mg 07/14/16 22:00 07/15/16 21:43 Crestor PO 5 mg HS [facility] Administration - Patient Studies Lab Studies: Microbiology Studies 07/14/16 Unknown MRSA Culture (Admit) - Final Nose MRSA NOT DETECTED Lab Studies 07/15/16 07/15/16 07/15/16 Range/Units 21:30 19:37 17:14 WBC (4.8-10.8) K/uL RBC (4.40-5.90) Mil/uL Hgb (12.0-18.0) g/dL Hct (35.0-51.0) % MCV (80.0-94.0) fL MCH (27.0-31.0) pg MCHC (33.0-37.0) g/dL RDW (11.5-14.5) % Plt Count (130-400) K/uL MPV (7.2-11.7) fL Neut % (Auto) (50.0-75.0) % Lymph % (Auto) (20.0-40.0) % [place] % (Auto) (0.0-10.0) % Eos % (Auto) (0.0-4.0) % Baso % (Auto) (0.0-2.0) % Neut # (1.8-7.0) K/uL Lymph # (1.0-4.3) K/uL [place] # (0.0-0.8) K/uL Eos # (0.0-0.7) K/uL Baso # (0.0-0.2) K/uL APTT (21-34) SECONDS Sodium (132-148) mmol/L Potassium (3.6-5.2) mmol/L Chloride (98-107) mmol/L Carbon Dioxide (22-30) mmol/L Anion Gap (10-20) BUN (9-20) mg/dL Creatinine (0.8-1.5) MG/DL Est GFR ( Amer) Est GFR (Non-Af Amer) POC Glucose (mg/dL) 103 153 H 104 (65-110) mg/dL Random Glucose (75-110) mg/dL Calcium (8.6-10.4) mg/dl Phosphorus (2.5-4.5) mg/dL Magnesium (1.6-2.3) mg/dL Total Bilirubin (0.2-1.3) mg/dL AST (17-59) U/L ALT (21-72) U/L Alkaline Phosphatase (38-126) U/L Total Protein (6.3-8.3) g/dL Albumin (3.5-5.0) g/dL Globulin (2.2-3.9) gm/dL Albumin/Globulin Ratio (1.0-2.1) 07/15/16 07/15/16 07/15/16 Range/Units 11:43 07:20 06:36 WBC 5.1 (4.8-10.8) K/uL RBC 4.41 (4.40-5.90) Mil/uL Hgb 13.9 (12.0-18.0) g/dL Hct 40.7 (35.0-51.0) % MCV 92.3 (80.0-94.0) fL MCH 31.5 H (27.0-31.0) pg MCHC 34.2 (33.0-37.0) g/dL RDW 13.9 (11.5-14.5) % Plt Count 127 L (130-400) K/uL MPV 7.0 L (7.2-11.7) fL Neut % (Auto) 70.8 (50.0-75.0) % Lymph % (Auto) 17.3 L (20.0-40.0) % [place] % (Auto) 10.7 H (0.0-10.0) % Eos % (Auto) 1.0 (0.0-4.0) % Baso % (Auto) 0.2 (0.0-2.0) % Neut # 3.6 (1.8-7.0) K/uL Lymph # 0.9 L (1.0-4.3) K/uL [place] # 0.5 (0.0-0.8) K/uL Eos # 0.1 (0.0-0.7) K/uL Baso # 0.0 (0.0-0.2) K/uL APTT 45 H (21-34) SECONDS Sodium 136 (132-148) mmol/L Potassium 3.6 (3.6-5.2) mmol/L Chloride 101 (98-107) mmol/L Carbon Dioxide 26 (22-30) mmol/L Anion Gap 13 (10-20) BUN 11 (9-20) mg/dL Creatinine 0.7 L (0.8-1.5) MG/DL Est GFR ( Amer) > 60 Est GFR (Non-Af Amer) > 60 POC Glucose (mg/dL) 98 99 (65-110) mg/dL Random Glucose 99 (75-110) mg/dL Calcium 8.5 L (8.6-10.4) mg/dl Phosphorus 2.6 (2.5-4.5) mg/dL Magnesium 2.0 (1.6-2.3) mg/dL Total Bilirubin 0.5 (0.2-1.3) mg/dL AST 122 H D (17-59) U/L ALT 43 (21-72) U/L Alkaline Phosphatase 58 (38-126) U/L Total Protein 6.6 (6.3-8.3) g/dL Albumin 3.5 (3.5-5.0) g/dL Globulin 3.2 (2.2-3.9) gm/dL Albumin/Globulin Ratio 1.1 (1.0-2.1) 07/14/16 07/14/16 Range/Units 23:20 23:12 WBC (4.8-10.8) K/uL RBC (4.40-5.90) Mil/uL Hgb (12.0-18.0) g/dL Hct (35.0-51.0) % MCV (80.0-94.0) fL MCH (27.0-31.0) pg MCHC (33.0-37.0) g/dL RDW (11.5-14.5) % Plt Count (130-400) K/uL MPV (7.2-11.7) fL Neut % (Auto) (50.0-75.0) % Lymph % (Auto) (20.0-40.0) % [place] % (Auto) (0.0-10.0) % Eos % (Auto) (0.0-4.0) % Baso % (Auto) (0.0-2.0) % Neut # (1.8-7.0) K/uL Lymph # (1.0-4.3) K/uL [place] # (0.0-0.8) K/uL Eos # (0.0-0.7) K/uL Baso # (0.0-0.2) K/uL APTT 45 H D (21-34) SECONDS Sodium (132-148) mmol/L Potassium (3.6-5.2) mmol/L Chloride (98-107) mmol/L Carbon Dioxide (22-30) mmol/L Anion Gap (10-20) BUN (9-20) mg/dL Creatinine (0.8-1.5) MG/DL Est GFR ( Amer) Est GFR (Non-Af Amer) POC Glucose (mg/dL) 98 (65-110) mg/dL Random Glucose (75-110) mg/dL Calcium (8.6-10.4) mg/dl Phosphorus (2.5-4.5) mg/dL Magnesium (1.6-2.3) mg/dL Total Bilirubin (0.2-1.3) mg/dL AST (17-59) U/L ALT (21-72) U/L Alkaline Phosphatase (38-126) U/L Total Protein (6.3-8.3) g/dL Albumin (3.5-5.0) g/dL Globulin (2.2-3.9) gm/dL Albumin/Globulin Ratio (1.0-2.1) Laboratory Results - last 24 hr 07/14/16 07/14/16 07/15/16 23:12 23:20 06:36 WBC 5.1 RBC 4.41 Hgb 13.9 Hct 40.7 MCV 92.3 MCH 31.5 H MCHC 34.2 RDW 13.9 Plt Count 127 L MPV 7.0 L Neut % (Auto) 70.8 Lymph % (Auto) 17.3 L [place] % (Auto) 10.7 H Eos % (Auto) 1.0 Baso % (Auto) 0.2 Neut # 3.6 Lymph # 0.9 L [place] # 0.5 Eos # 0.1 Baso # 0.0 APTT 45 H D 45 H Sodium 136 Potassium 3.6 Chloride 101 Carbon Dioxide 26 Anion Gap 13 BUN 11 Creatinine 0.7 L Est GFR ( Amer) > 60 Est GFR (Non-Af Amer) > 60 POC Glucose (mg/dL) 98 Random Glucose 99 Calcium 8.5 L Phosphorus 2.6 Magnesium 2.0 Total Bilirubin 0.5 AST 122 H D ALT 43 Alkaline Phosphatase 58 Total Protein 6.6 Albumin 3.5 Globulin 3.2 Albumin/Globulin Ratio 1.1 07/15/16 07/15/16 07/15/16 07:20 11:43 17:14 WBC RBC Hgb Hct MCV MCH MCHC RDW Plt Count MPV Neut % (Auto) Lymph % (Auto) [place] % (Auto) Eos % (Auto) Baso % (Auto) Neut # Lymph # [place] # Eos # Baso # APTT Sodium Potassium Chloride Carbon Dioxide Anion Gap BUN Creatinine Est GFR ( Amer) Est GFR (Non-Af Amer) POC Glucose (mg/dL) 99 98 104 Random Glucose Calcium Phosphorus Magnesium Total Bilirubin AST ALT Alkaline Phosphatase Total Protein Albumin Globulin Albumin/Globulin Ratio 07/15/16 07/15/16 19:37 21:30 WBC RBC Hgb Hct MCV MCH MCHC RDW Plt Count MPV Neut % (Auto) Lymph % (Auto) [place] % (Auto) Eos % (Auto) Baso % (Auto) Neut # Lymph # [place] # Eos # Baso # APTT Sodium Potassium Chloride Carbon Dioxide Anion Gap BUN Creatinine Est GFR ( Amer) Est GFR (Non-Af Amer) POC Glucose (mg/dL) 153 H 103 Random Glucose Calcium Phosphorus Magnesium Total Bilirubin AST ALT Alkaline Phosphatase Total Protein Albumin Globulin Albumin/Globulin Ratio Fingerstick Blood Sugar Results: 98 Review of Systems - Review of Systems All systems: reviewed and no additional remarkable complaints except Critical Care Progress Note - Nutrition Nutrition: Nutrition Category Date Time Status Diabetic [Consistent Carbohydrate] [DIET] Diets 07/13/16 Dinner Active Assessment/Plan (1) NSTEMI (non-ST elevated myocardial infarction) Current Visit: Yes Status: Acute Comment: Troponin I 46.1000>32.3000 Procedures: 07/14 Angiogram: Dr. Diggs - Complex lesion of the entire mid- circumflex artery segment. 80% stenosis of proximal LAD before the mid LAD stent involving the ostium of the first diagonal branch. Estimated EF 50% Crestor 5 mg PO HS [facility], Lopressor 25 mg BID ( hold parameters for systolic below 100 and HR below 60),Zestril 5 mg PO daily
[2016-07-16] MEDS ORDERED: Heparin25000 units/250ml 1/2NS 250 ML IV PRN (00:35)
[2016-07-16 06:45] LABS: BASO % 0.4 % (0.0-2.0); EOS # 0.1 K/uL (0.0-0.7); HEMATOCRIT 40.8 % (35.0-51.0); LYMPH # 0.8 K/uL (1.0-4.3); LYMPH % 20.4 % (20.0-40.0); MEAN CELL VOLUME 91.1 fL (80.0-94.0); MEAN CORPUSCULAR HEMOGLOBIN 31.6 pg (27.0-31.0); MEAN CORPUSCULAR HGB CONC 34.7 g/dL (33.0-37.0); MONO # 0.6 K/uL (0.0-0.8); MONO % 13.9 % (0.0-10.0); NRBC % 0.1 % (0.0-2.0); RED CELL DISTRIBUTION WIDTH 13.6 % (11.5-14.5); WHITE BLOOD COUNT 4.1 K/uL (4.8-10.8)
[2016-07-16 06:46] LABS: CHLORIDE 99 mmol/L (98-107); POTASSIUM 3.8 mmol/L (3.6-5.2); SODIUM 134 mmol/L (132-148)
[2016-07-16 06:49] LABS: ALKALINE PHOSPHATASE 52 U/L (38-126); ALT/SGPT 33 U/L (21-72); AST/SGOT 95 U/L (17-59); BILIRUBIN,TOTAL 0.7 mg/dL (0.2-1.3); BLOOD UREA NITROGEN 11 mg/dL (9-20); CALCIUM 8.4 mg/dl (8.6-10.4); CARBON DIOXIDE 22 mmol/L (22-30); GFR AFRICAN-AMERICAN > 60; GLUCOSE,RANDOM 98 mg/dL (75-110)
--- NOTE | 2016-07-16 09:15 | CARD ---
APPROVED REPORT EKG Measurement Heart [id number] <Conclusion> Normal sinus rhythm Inferior infarct, age undetermined Abnormal ECG
[2016-07-16] MEDS: Pantoprazole 40 mg EC Tab PO SCH (09:35)
[2016-07-16] MEDS ORDERED: Pneumococcal 23-Valent Vaccine IM ONE (10:00)
--- NOTE | 2016-07-16 11:01 | CP.PCM.PN ---
Subjective - Date & Time of Evaluation Date of Evaluation: 07/16/16 Objective - Vital Signs/Intake and Output Vital Signs (last 24 hours): Temp Pulse Resp BP Pulse Ox 99.1 F 82 18 103/65 95 07/16/16 08:00 07/16/16 10:00 07/16/16 10:00 07/16/16 10:00 07/16/16 10:00 Intake and Output: 07/16/16 07/16/16 06:59 18:59 Intake Total 170.8 323.6 Output Total 1450 200 Balance -1279.2 123.6 - Medications Medications: Current Medications Aspirin (Aspirin Chewable) 81 mg PO DAILY [facility] Last Admin: 07/16/16 09:35 Dose: 81 mg Clopidogrel Bisulfate (Plavix) 75 mg PO DAILY [facility] Last Admin: 07/16/16 09:36 Dose: 75 mg Docusate Sodium (Colace) 100 mg PO DAILY [facility] Last Admin: 07/16/16 09:35 Dose: 100 mg Heparin Sodium/Sodium Chloride (Heparin 68686 Units/250ml 1/2 Normal Saline) 250 mls @ 3.854 mls/hr IV .Q24H PRN; Protocol; 5.9 UNITS/KG/HR PRN Reason: PROTOCOL Last Admin: 07/16/16 09:34 Dose: 5.879 mls/hr Lisinopril (Zestril) 5 mg PO DAILY [facility] Last Admin: 07/16/16 09:35 Dose: 5 mg Metoprolol Tartrate (Lopressor) 25 mg PO BID [facility] Last Admin: 07/16/16 09:35 Dose: 25 mg Pantoprazole Sodium (Protonix Ec Tab) 40 mg PO DAILY [facility] Last Admin: 07/16/16 09:35 Dose: 40 mg Rosuvastatin Calcium (Crestor) 5 mg PO HS [facility] Last Admin: 07/15/16 21:43 Dose: 5 mg - Labs Labs: 07/16/16 06:28 07/16/16 06:28 PT 11.4 SECONDS (9.7-12.2) 07/13/16 16:30 INR 1.0 07/13/16 16:30 APTT 51 SECONDS (21-34) H D 07/16/16 06:28
--- NOTE | 2016-07-16 16:16 | CP.CCUPN ---
CCU Subjective - Physician Review Events Since Last Encounter (Free Text): 07/16/16 16:12 Patient is clinically stable, awaiting transfer to [facility] for cath with stent placement. CCU Objective - Vital Signs / Intake & Output Vital Signs (Last 4 hours): Vital Signs Pulse Resp Pulse Ox 07/16/16 13:58 68 17 93 L 07/16/16 13:00 67 19 95 07/16/16 12:26 94 H 25 H 94 L Intake and Output (Last 8hrs): Intake & Output 07/16/16 07/16/16 07/16/16 06:59 14:59 22:59 Intake Total 47.2 467.2 Output Total 950 400 Balance -902.8 67.2 Weight 148 lb 5 oz Intake: Intake, IV Amount 47.2 47.2 Left Forearm 47.2 47.2 Oral 420 Output: Urine 950 400 Urine, Voided 950 400 Other: # Voids Urine, Voided 0 # Bowel Movements 0 - Physical Exam Head: Positive for: Atraumatic, Normocephalic Pupils: Positive for: PERRL Extroacular Muscles: Positive for: EOMI Conjunctiva: Positive for: Normal Mouth: Positive for: Moist Mucous Membranes Neck: Positive for: Normal Range of Motion Respiratory/Chest: Positive for: Clear to Auscultation Cardiovascular: Positive for: Regular Rate and Rhythm Abdomen: Positive for: Normal Bowel Sounds Upper Extremity: Positive for: Normal Inspection Lower Extremity: Positive for: Normal Inspection Psychiatric: Positive for: Alert, Oriented x 3 - Medications Active Medications: Active Medications Generic Name Dose Route Start Last Admin Trade Name Freq PRN Reason Stop Dose Admin Aspirin 81 mg 07/14/16 10:00 07/16/16 09:35 Aspirin Chewable PO 81 mg DAILY VICENTA Administration Clopidogrel Bisulfate 75 mg 07/14/16 10:00 07/16/16 09:36 Plavix PO 75 mg DAILY VICENTA Administration Docusate Sodium 100 mg 07/15/16 10:00 07/16/16 09:35 Colace PO 100 mg DAILY VICENTA Administration Heparin Sodium/Sodium Chloride 250 mls @ 3.854 mls/hr 07/16/16 00:35 07/16/16 09:34 Heparin 32954 Units/250ml 1/2 Normal Saline IV 5.879 mls/hr .Q24H PRN Administration PROTOCOL Protocol 5.9 UNITS/KG/HR Lisinopril 5 mg 07/14/16 10:00 07/16/16 09:35 Zestril PO 5 mg DAILY VICENTA Administration Metoprolol Tartrate 25 mg 07/15/16 10:00 07/16/16 09:35 Lopressor PO 25 mg BID VICENTA Administration Pantoprazole Sodium 40 mg 07/15/16 10:00 07/16/16 09:35 Protonix Ec Tab PO 40 mg DAILY VICENTA Administration Rosuvastatin Calcium 5 mg 07/14/16 22:00 07/15/16 21:43 Crestor PO 5 mg HS VICENTA Administration - Patient Studies Lab Studies: Microbiology Studies 07/14/16 Unknown MRSA Culture (Admit) - Final Nose MRSA NOT DETECTED Lab Studies 07/16/16 07/16/16 07/16/16 Range/Units 15:52 11:55 07:39 WBC (4.8-10.8) K/uL RBC (4.40-5.90) Mil/uL Hgb (12.0-18.0) g/dL Hct (35.0-51.0) % MCV (80.0-94.0) fL MCH (27.0-31.0) pg MCHC (33.0-37.0) g/dL RDW (11.5-14.5) % Plt Count (130-400) K/uL MPV (7.2-11.7) fL Neut % (Auto) (50.0-75.0) % Lymph % (Auto) (20.0-40.0) % [place] % (Auto) (0.0-10.0) % Eos % (Auto) (0.0-4.0) % Baso % (Auto) (0.0-2.0) % Neut # (1.8-7.0) K/uL Lymph # (1.0-4.3) K/uL [place] # (0.0-0.8) K/uL Eos # (0.0-0.7) K/uL Baso # (0.0-0.2) K/uL APTT (21-34) SECONDS Sodium (132-148) mmol/L Potassium (3.6-5.2) mmol/L Chloride (98-107) mmol/L Carbon Dioxide (22-30) mmol/L Anion Gap (10-20) BUN (9-20) mg/dL Creatinine (0.8-1.5) MG/DL Est GFR ( Amer) Est GFR (Non-Af Amer) POC Glucose (mg/dL) 118 H 124 H 91 (65-110) mg/dL Random Glucose (75-110) mg/dL Calcium (8.6-10.4) mg/dl Total Bilirubin (0.2-1.3) mg/dL AST (17-59) U/L ALT (21-72) U/L Alkaline Phosphatase (38-126) U/L Total Protein (6.3-8.3) g/dL Albumin (3.5-5.0) g/dL Globulin (2.2-3.9) gm/dL Albumin/Globulin Ratio (1.0-2.1) 07/16/16 07/15/16 07/15/16 Range/Units 06:28 21:30 19:37 WBC 4.1 L (4.8-10.8) K/uL RBC 4.48 (4.40-5.90) Mil/uL Hgb 14.2 (12.0-18.0) g/dL Hct 40.8 (35.0-51.0) % MCV 91.1 (80.0-94.0) fL MCH 31.6 H (27.0-31.0) pg MCHC 34.7 (33.0-37.0) g/dL RDW 13.6 (11.5-14.5) % Plt Count 110 L (130-400) K/uL MPV 7.0 L (7.2-11.7) fL Neut % (Auto) 63.3 (50.0-75.0) % Lymph % (Auto) 20.4 (20.0-40.0) % [place] % (Auto) 13.9 H (0.0-10.0) % Eos % (Auto) 2.0 (0.0-4.0) % Baso % (Auto) 0.4 (0.0-2.0) % Neut # 2.6 (1.8-7.0) K/uL Lymph # 0.8 L (1.0-4.3) K/uL [place] # 0.6 (0.0-0.8) K/uL Eos # 0.1 (0.0-0.7) K/uL Baso # 0.0 (0.0-0.2) K/uL APTT 51 H D (21-34) SECONDS Sodium 134 (132-148) mmol/L Potassium 3.8 (3.6-5.2) mmol/L Chloride 99 (98-107) mmol/L Carbon Dioxide 22 (22-30) mmol/L Anion Gap 16 (10-20) BUN 11 (9-20) mg/dL Creatinine 0.6 L (0.8-1.5) MG/DL Est GFR ( Amer) > 60 Est GFR (Non-Af Amer) > 60 POC Glucose (mg/dL) 103 153 H (65-110) mg/dL Random Glucose 98 (75-110) mg/dL Calcium 8.4 L (8.6-10.4) mg/dl Total Bilirubin 0.7 (0.2-1.3) mg/dL AST 95 H D (17-59) U/L ALT 33 (21-72) U/L Alkaline Phosphatase 52 (38-126) U/L Total Protein 7.0 (6.3-8.3) g/dL Albumin 3.6 (3.5-5.0) g/dL Globulin 3.4 (2.2-3.9) gm/dL Albumin/Globulin Ratio 1.0 (1.0-2.1) // Range/Units 17:14 WBC (4.8-10.8) K/uL RBC (4.40-5.90) Mil/uL Hgb (12.0-18.0) g/dL Hct (35.0-51.0) % MCV (80.0-94.0) fL MCH (27.0-31.0) pg MCHC (33.0-37.0) g/dL RDW (11.5-14.5) % Plt Count (130-400) K/uL MPV (7.2-11.7) fL Neut % (Auto) (50.0-75.0) % Lymph % (Auto) (20.0-40.0) % [place] % (Auto) (0.0-10.0) % Eos % (Auto) (0.0-4.0) % Baso % (Auto) (0.0-2.0) % Neut # (1.8-7.0) K/uL Lymph # (1.0-4.3) K/uL [place] # (0.0-0.8) K/uL Eos # (0.0-0.7) K/uL Baso # (0.0-0.2) K/uL APTT (21-34) SECONDS Sodium (132-148) mmol/L Potassium (3.6-5.2) mmol/L Chloride (98-107) mmol/L Carbon Dioxide (22-30) mmol/L Anion Gap (10-20) BUN (9-20) mg/dL Creatinine (0.8-1.5) MG/DL Est GFR ( Amer) Est GFR (Non-Af Amer) POC Glucose (mg/dL) 104 (65-110) mg/dL Random Glucose (75-110) mg/dL Calcium (8.6-10.4) mg/dl Total Bilirubin (0.2-1.3) mg/dL AST (17-59) U/L ALT (21-72) U/L Alkaline Phosphatase (38-126) U/L Total Protein (6.3-8.3) g/dL Albumin (3.5-5.0) g/dL Globulin (2.2-3.9) gm/dL Albumin/Globulin Ratio (1.0-2.1) Laboratory Results - last 24 hr 07/15/16 07/15/16 07/15/16 17:14 19:37 21:30 WBC RBC Hgb Hct MCV MCH MCHC RDW Plt Count MPV Neut % (Auto) Lymph % (Auto) [place] % (Auto) Eos % (Auto) Baso % (Auto) Neut # Lymph # [place] # Eos # Baso # APTT Sodium Potassium Chloride Carbon Dioxide Anion Gap BUN Creatinine Est GFR ( Amer) Est GFR (Non-Af Amer) POC Glucose (mg/dL) 104 153 H 103 Random Glucose Calcium Total Bilirubin AST ALT Alkaline Phosphatase Total Protein Albumin Globulin Albumin/Globulin Ratio 07/16/16 07/16/16 07/16/16 06:28 07:39 11:55 WBC 4.1 L RBC 4.48 Hgb 14.2 Hct 40.8 MCV 91.1 MCH 31.6 H MCHC 34.7 RDW 13.6 Plt Count 110 L MPV 7.0 L Neut % (Auto) 63.3 Lymph % (Auto) 20.4 [place] % (Auto) 13.9 H Eos % (Auto) 2.0 Baso % (Auto) 0.4 Neut # 2.6 Lymph # 0.8 L [place] # 0.6 Eos # 0.1 Baso # 0.0 APTT 51 H D Sodium 134 Potassium 3.8 Chloride 99 Carbon Dioxide 22 Anion Gap 16 BUN 11 Creatinine 0.6 L Est GFR ( Amer) > 60 Est GFR (Non-Af Amer) > 60 POC Glucose (mg/dL) 91 124 H Random Glucose 98 Calcium 8.4 L Total Bilirubin 0.7 AST 95 H D ALT 33 Alkaline Phosphatase 52 Total Protein 7.0 Albumin 3.6 Globulin 3.4 Albumin/Globulin Ratio 1.0 07/16/16 15:52 WBC RBC Hgb Hct MCV MCH MCHC RDW Plt Count MPV Neut % (Auto) Lymph % (Auto) [place] % (Auto) Eos % (Auto) Baso % (Auto) Neut # Lymph # [place] # Eos # Baso # APTT Sodium Potassium Chloride Carbon Dioxide Anion Gap BUN Creatinine Est GFR ( Amer) Est GFR (Non-Af Amer) POC Glucose (mg/dL) 118 H Random Glucose Calcium Total Bilirubin AST ALT Alkaline Phosphatase Total Protein Albumin Globulin Albumin/Globulin Ratio Fingerstick Blood Sugar Results: 91 Review of Systems - Review of Systems All systems: reviewed and no additional remarkable complaints except - Cardiovascular Cardiovascular: Chest Pain with Activity Critical Care Progress Note - Nutrition Nutrition: Nutrition Category Date Time Status Diabetic [Consistent Carbohydrate] [DIET] Diets 07/13/16 Dinner Active Assessment/Plan (1) NSTEMI (non-ST elevated myocardial infarction) Assessment and plan: 80 M with past medical history of HTN, DM, CAD, BPH and OR with stents to the LAD and right coronary artery placed approximately 1992 and 2001 presented with NSTEMI. Patient s/p angiogram with findings of a complex lesion of the entire mid-circumflex artery segment and 80% stenosis of proximal LAD before the mid LAD stent. Estimated EF of 50%. Neuro: Alert and oriented 3 Pulm: No acute issues, breathing spontaneously on room air. CV: Hemodynamically stable. Patient awaiting transfer to [facility] for cardiac catheterization with stent placement. Patient will return to [facility] after stent placement. Hem: Patient on heparin drip for NSTEMI Renal: No acute issues, urine output within normal limits Endo: DM type II, short acting insulin sliding scale for coverage GI: Heart healthy diet ID: No acute issues DVT proph - heparin drip GI proph - Protonix Code status - full code Crtical Care Time spent 35 minutes Multi-disciplinary rounds were performed with house staff, nursing, speech therapy, respiratory therapy, pharmacy and nutrition with integrated input from the primary team/attending and other consulting services. The documented time is cumulative and includes review of patient data/exams/labs/chart review and examination of the patient on rounds and throughout the day; time is exclusive of any procedures or teaching time. Current Visit: Yes Status: Acute Comment: Troponin I 46.1000>32.3000 Procedures: 07/14 Angiogram: Dr. Diggs - Complex lesion of the entire mid- circumflex artery segment. 80% stenosis of proximal LAD before the mid LAD stent involving the ostium of the first diagonal branch. Estimated EF 50% Crestor 5 mg PO HS VICENTA, Lopressor 25 mg BID ( hold parameters for systolic below 100 and HR below 60),Zestril 5 mg PO daily
--- NOTE | 2016-07-16 19:17 | PN ---
DATE: 07/16/2016 SUBJECTIVE: The patient denies any chest pain or shortness of breath. No groin bleeding. PHYSICAL EXAMINATION: VITAL SIGNS: Blood pressure 94/54, heart rate 71, temperature 97.7, respirations 18. HEENT: Normocephalic. NECK: No JVD. CHEST: Clear. HEART: S1, S2 regular. ABDOMEN: Soft. EXTREMITIES: No edema. No groin hematoma. LABORATORIES: CBC: WBC 4.1, hemoglobin 14.2, hematocrit 40.8, platelet count 110,000. SMA-7 is wit hin normal limits except for creatinine 0.6. Calcium is below normal at 8.4. PTT 61. ASSESSMENT: 1. Status post non-ST elevation myocardial infarction. 2. 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 3. Hypertension. RECOMMENDATIONS: Continue current aspirin at 81 mg once a day, Plavix 75 mg once a day, Lopressor 25 mg twice a day, Crestor at 5 mg once a day, intravenous heparin infusion. The plan is to transfer t he patient tomorrow to [facility] for PCI. The [facility] will be co ntacted tomorrow morning. However, the patient will not be kept n.p.o. until timing of the procedure is confirmed. Garett Diggs MD cc: [id number] TT: 07/16/2016 19:16:34 Confirmation # [id number] Dictation # [id number]
--- NOTE | 2016-07-16 22:33 | CP.PCM.PN ---
Subjective - Date & Time of Evaluation Date of Evaluation: 07/16/16 Time of Evaluation: 14:00 - Subjective Subjective: No CP for PCI in AM Objective - Vital Signs/Intake and Output Vital Signs (last 24 hours): Temp Pulse Resp BP Pulse Ox 97.9 F 79 25 H 95/57 L 96 07/16/16 20:00 07/16/16 19:00 07/16/16 19:00 07/16/16 19:00 07/16/16 20:00 Intake and Output: 07/16/16 07/17/16 18:59 06:59 Intake Total 690.8 17.7 Output Total 550 100 Balance 140.8 -82.3 - Medications Medications: Current Medications Aspirin (Aspirin Chewable) 81 mg PO DAILY [facility] Last Admin: 07/16/16 09:35 Dose: 81 mg Clopidogrel Bisulfate (Plavix) 75 mg PO DAILY [facility] Last Admin: 07/16/16 09:36 Dose: 75 mg Docusate Sodium (Colace) 100 mg PO DAILY [facility] Last Admin: 07/16/16 09:35 Dose: 100 mg Heparin Sodium/Sodium Chloride (Heparin 88768 Units/250ml 1/2 Normal Saline) 250 mls @ 3.854 mls/hr IV .Q24H PRN; Protocol; 5.9 UNITS/KG/HR PRN Reason: PROTOCOL Last Admin: 07/16/16 09:34 Dose: 5.879 mls/hr Lisinopril (Zestril) 5 mg PO DAILY [facility] Last Admin: 07/16/16 09:35 Dose: 5 mg Metoprolol Tartrate (Lopressor) 25 mg PO BID [facility] Last Admin: 07/16/16 17:34 Dose: Not Given Pantoprazole Sodium (Protonix Ec Tab) 40 mg PO DAILY [facility] Last Admin: 07/16/16 09:35 Dose: 40 mg Rosuvastatin Calcium (Crestor) 5 mg PO HS [facility] Last Admin: 07/16/16 22:00 Dose: 5 mg - Labs Labs: 07/16/16 06:28 07/16/16 06:28 PT 11.4 SECONDS (9.7-12.2) 07/13/16 16:30 INR 1.0 07/13/16 16:30 APTT 51 SECONDS (21-34) H D 07/16/16 06:28 - Constitutional Appears: Non-toxic - Head Exam Head Exam: ATRAUMATIC - Eye Exam Eye Exam: EOMI - ENT Exam ENT Exam: Mucous Membranes Moist - Neck Exam Neck Exam: absent: Lymphadenopathy, Thyromegaly - Respiratory Exam Respiratory Exam: Clear to Ausculation Bilateral. absent: Rales - Cardiovascular Exam Cardiovascular Exam: REGULAR RHYTHM, Murmur - GI/Abdominal Exam GI & Abdominal Exam: Normal Bowel Sounds. absent: Organomegaly - Rectal Exam Rectal Exam: Deferred - Extremities Exam Extremities Exam: Normal Capillary Refill. absent: Calf Tenderness - Neurological Exam Neurological Exam: Alert, Oriented x3 - Psychiatric Exam Psychiatric exam: Normal Mood - Skin Skin Exam: Dry Assessment and Plan (1) Elevated troponin I measurement Status: Acute (2) Diabetes 1.5, managed as type 2 Status: Chronic (3) Hypertension Status: Chronic
[2016-07-17] MEDS ORDERED: Aluminum Hydroxide/Magnesium Hydroxide Susp (30 mL) PO STA (01:22)
[2016-07-17 06:37] LABS: BASO % 0.3 % (0.0-2.0); EOS # 0.2 K/uL (0.0-0.7); EOS % 3.6 % (0.0-4.0); LYMPH # 1.1 K/uL (1.0-4.3); LYMPH % 25.4 % (20.0-40.0); MEAN CELL VOLUME 90.3 fL (80.0-94.0); MEAN CORPUSCULAR HEMOGLOBIN 31.6 pg (27.0-31.0); MEAN PLATELET VOLUME 7.3 fL (7.2-11.7); MONO # 0.5 K/uL (0.0-0.8); MONO % 10.6 % (0.0-10.0); RED CELL DISTRIBUTION WIDTH 13.9 % (11.5-14.5); WHITE BLOOD COUNT 4.4 K/uL (4.8-10.8)
[2016-07-17 06:39] LABS: CHLORIDE 97 mmol/L (98-107)
[2016-07-17 06:40] LABS: POTASSIUM 3.8 mmol/L (3.6-5.2); SODIUM 134 mmol/L (132-148)
[2016-07-17 06:42] LABS: ALB/GLOB RATIO 1.2 (1.0-2.1); ALKALINE PHOSPHATASE 61 U/L (38-126); ALT/SGPT 31 U/L (21-72); AST/SGOT 66 U/L (17-59); BILIRUBIN,TOTAL 0.8 mg/dL (0.2-1.3); BLOOD UREA NITROGEN 12 mg/dL (9-20); CARBON DIOXIDE 24 mmol/L (22-30); GFR AFRICAN-AMERICAN > 60; GLUCOSE,RANDOM 113 mg/dL (75-110); TOTAL PROTEIN 7.2 g/dL (6.3-8.3)
[2016-07-17 06:43] LABS: CALCIUM 8.3 mg/dl (8.6-10.4); MAGNESIUM 2.1 mg/dL (1.6-2.3); PHOSPHOROUS 3.7 mg/dL (2.5-4.5)
--- NOTE | 2016-07-17 06:48 | CP.CCUPN ---
<Marc Ambrose - Last Filed: 07/17/16 11:20> CCU Subjective - Physician Review Subjective (Free Text): 07/17/16 11:21 Pt seen and examined in no acute distress. Patient denies any pain or palpitations at this time. Patient has a poor appetite but states that he generally does not eat much day to day even when he feels well. Patient denies any subjective fevers or chills, nausea, vomiting, diarrhea or constipation at this time. CCU Objective - Vital Signs / Intake & Output Vital Signs (Last 4 hours): Vital Signs Temp Pulse Ox 07/17/16 04:00 98.2 F 92 L Intake and Output (Last 8hrs): Intake & Output 07/16/16 07/16/16 07/17/16 14:59 22:59 06:59 Intake Total 467.2 347.2 85.4 Output Total 400 250 Balance 67.2 97.2 85.4 Weight 148 lb 5 oz Intake: Intake, IV Amount 47.2 47.2 35.4 Left Forearm 47.2 47.2 35.4 Oral 420 300 50 Output: Urine 400 250 Urine, Voided 400 250 Other: # Voids Urine, Voided 0 400 0 # Bowel Movements 0 0 0 - Physical Exam Physical Exam Limitations: Negative for: Altered Mental Status Head: Positive for: Atraumatic, Normocephalic Pupils: Positive for: PERRL Extroacular Muscles: Positive for: EOMI Conjunctiva: Positive for: Normal Mouth: Positive for: Moist Mucous Membranes Neck: Positive for: Normal Range of Motion Respiratory/Chest: Positive for: Clear to Auscultation. Negative for: Wheezes Cardiovascular: Positive for: Regular Rate and Rhythm Abdomen: Positive for: Normal Bowel Sounds Upper Extremity: Positive for: Normal Inspection Lower Extremity: Positive for: Normal Inspection Neurological: Positive for: CN II-XII Intact Skin: Positive for: Warm, Dry Psychiatric: Positive for: Alert, Oriented x 3 - Medications Active Medications: Active Medications Generic Name Dose Route Start Last Admin Trade Name Freq PRN Reason Stop Dose Admin Aspirin 81 mg 07/14/16 10:00 07/16/16 09:35 Aspirin Chewable PO 81 mg DAILY [facility] Administration Clopidogrel Bisulfate 75 mg 07/14/16 10:00 07/16/16 09:36 Plavix PO 75 mg DAILY [facility] Administration Docusate Sodium 100 mg 07/15/16 10:00 07/16/16 09:35 Colace PO 100 mg DAILY [facility] Administration Heparin Sodium/Sodium Chloride 250 mls @ 3.854 mls/hr 07/16/16 00:35 07/16/16 09:34 Heparin 96659 Units/250ml 1/2 Normal Saline IV 5.879 mls/hr .Q24H PRN Administration PROTOCOL Protocol 5.9 UNITS/KG/HR Lisinopril 5 mg 07/14/16 10:00 07/16/16 09:35 Zestril PO 5 mg DAILY [facility] Administration Metoprolol Tartrate 25 mg 07/15/16 10:00 07/16/16 17:34 Lopressor PO Not Given BID [facility] Pantoprazole Sodium 40 mg 07/15/16 10:00 07/16/16 09:35 Protonix Ec Tab PO 40 mg DAILY [facility] Administration Rosuvastatin Calcium 5 mg 07/14/16 22:00 07/16/16 22:00 Crestor PO 5 mg HS [facility] Administration - Patient Studies Lab Studies: Lab Studies 07/16/16 07/16/16 07/16/16 Range/Units 21:20 15:52 11:55 WBC (4.8-10.8) K/uL RBC (4.40-5.90) Mil/uL Hgb (12.0-18.0) g/dL Hct (35.0-51.0) % MCV (80.0-94.0) fL MCH (27.0-31.0) pg MCHC (33.0-37.0) g/dL RDW (11.5-14.5) % Plt Count (130-400) K/uL MPV (7.2-11.7) fL Neut % (Auto) (50.0-75.0) % Lymph % (Auto) (20.0-40.0) % [place] % (Auto) (0.0-10.0) % Eos % (Auto) (0.0-4.0) % Baso % (Auto) (0.0-2.0) % Neut # (1.8-7.0) K/uL Lymph # (1.0-4.3) K/uL [place] # (0.0-0.8) K/uL Eos # (0.0-0.7) K/uL Baso # (0.0-0.2) K/uL APTT (21-34) SECONDS Sodium (132-148) mmol/L Potassium (3.6-5.2) mmol/L Chloride (98-107) mmol/L Carbon Dioxide (22-30) mmol/L Anion Gap (10-20) BUN (9-20) mg/dL Creatinine (0.8-1.5) MG/DL Est GFR ( Amer) Est GFR (Non-Af Amer) POC Glucose (mg/dL) 130 H 118 H 124 H (65-110) mg/dL Random Glucose (75-110) mg/dL Calcium (8.6-10.4) mg/dl Total Bilirubin (0.2-1.3) mg/dL AST (17-59) U/L ALT (21-72) U/L Alkaline Phosphatase (38-126) U/L Total Protein (6.3-8.3) g/dL Albumin (3.5-5.0) g/dL Globulin (2.2-3.9) gm/dL Albumin/Globulin Ratio (1.0-2.1) 07/16/16 07/16/16 Range/Units 07:39 06:28 WBC 4.1 L (4.8-10.8) K/uL RBC 4.48 (4.40-5.90) Mil/uL Hgb 14.2 (12.0-18.0) g/dL Hct 40.8 (35.0-51.0) % MCV 91.1 (80.0-94.0) fL MCH 31.6 H (27.0-31.0) pg MCHC 34.7 (33.0-37.0) g/dL RDW 13.6 (11.5-14.5) % Plt Count 110 L (130-400) K/uL MPV 7.0 L (7.2-11.7) fL Neut % (Auto) 63.3 (50.0-75.0) % Lymph % (Auto) 20.4 (20.0-40.0) % [place] % (Auto) 13.9 H (0.0-10.0) % Eos % (Auto) 2.0 (0.0-4.0) % Baso % (Auto) 0.4 (0.0-2.0) % Neut # 2.6 (1.8-7.0) K/uL Lymph # 0.8 L (1.0-4.3) K/uL [place] # 0.6 (0.0-0.8) K/uL Eos # 0.1 (0.0-0.7) K/uL Baso # 0.0 (0.0-0.2) K/uL APTT 51 H D (21-34) SECONDS Sodium 134 (132-148) mmol/L Potassium 3.8 (3.6-5.2) mmol/L Chloride 99 (98-107) mmol/L Carbon Dioxide 22 (22-30) mmol/L Anion Gap 16 (10-20) BUN 11 (9-20) mg/dL Creatinine 0.6 L (0.8-1.5) MG/DL Est GFR ( Amer) > 60 Est GFR (Non-Af Amer) > 60 POC Glucose (mg/dL) 91 (65-110) mg/dL Random Glucose 98 (75-110) mg/dL Calcium 8.4 L (8.6-10.4) mg/dl Total Bilirubin 0.7 (0.2-1.3) mg/dL AST 95 H D (17-59) U/L ALT 33 (21-72) U/L Alkaline Phosphatase 52 (38-126) U/L Total Protein 7.0 (6.3-8.3) g/dL Albumin 3.6 (3.5-5.0) g/dL Globulin 3.4 (2.2-3.9) gm/dL Albumin/Globulin Ratio 1.0 (1.0-2.1) Laboratory Results - last 24 hr 07/16/16 07/16/16 07/16/16 06:28 07:39 11:55 WBC 4.1 L RBC 4.48 Hgb 14.2 Hct 40.8 MCV 91.1 MCH 31.6 H MCHC 34.7 RDW 13.6 Plt Count 110 L MPV 7.0 L Neut % (Auto) 63.3 Lymph % (Auto) 20.4 [place] % (Auto) 13.9 H Eos % (Auto) 2.0 Baso % (Auto) 0.4 Neut # 2.6 Lymph # 0.8 L [place] # 0.6 Eos # 0.1 Baso # 0.0 APTT 51 H D Sodium 134 Potassium 3.8 Chloride 99 Carbon Dioxide 22 Anion Gap 16 BUN 11 Creatinine 0.6 L Est GFR ( Amer) > 60 Est GFR (Non-Af Amer) > 60 POC Glucose (mg/dL) 91 124 H Random Glucose 98 Calcium 8.4 L Total Bilirubin 0.7 AST 95 H D ALT 33 Alkaline Phosphatase 52 Total Protein 7.0 Albumin 3.6 Globulin 3.4 Albumin/Globulin Ratio 1.0 07/16/16 07/16/16 15:52 21:20 WBC RBC Hgb Hct MCV MCH MCHC RDW Plt Count MPV Neut % (Auto) Lymph % (Auto) [place] % (Auto) Eos % (Auto) Baso % (Auto) Neut # Lymph # [place] # Eos # Baso # APTT Sodium Potassium Chloride Carbon Dioxide Anion Gap BUN Creatinine Est GFR ( Amer) Est GFR (Non-Af Amer) POC Glucose (mg/dL) 118 H 130 H Random Glucose Calcium Total Bilirubin AST ALT Alkaline Phosphatase Total Protein Albumin Globulin Albumin/Globulin Ratio Fingerstick Blood Sugar Results: 130 Review of Systems - Review of Systems Review of Systems: as noted in subjective Critical Care Progress Note - Nutrition Nutrition: Nutrition Category Date Time Status Diabetic [Consistent Carbohydrate] [DIET] Diets 07/13/16 Dinner Active Assessment/Plan - Assessment and Plan (Free Text) Assessment: 80 M with extensive cardiac history inclusive of two prior stents to the LAD and right coronary artery presents with diaphoresis and chest discomfort. Pt is s/p angiogram with findings of a complex lesion of the entire mid-circumflex artery segment and 80% stenosis of proximal LAD before the mid LAD stent. Estimated /EF of 50%. He is awaiting transfer to [facility] on Monday 07/17. Plan: Neuro: Neurochecks q6 Cardio: HTN Possible NSTEMI Troponin I 46.1000>32.3000 CK-MB 197>97.0 Creatine Kinase 2603>1151 Procedures: 07/14 Angiogram: Dr. Diggs - Complex lesion of the entire mid- circumflex artery segment. 80% stenosis of proximal LAD before the mid LAD stent involving the ostium of the first diagonal branch. Estimated EF 50% Imagin/16 EKG: NSR @ 64 bpm with inferior infarct of undetermined age. 07/[address] Min report of ST in the field. Non at the ED. No further CP, mildly elevated TNI, good compliance, A1c, lipids, doubt OR, observe. Crestor 5 mg PO HS [facility], Lopressor 25 mg BID ( hold parameters for systolic below 100 and HR below 60),Zestril 5 mg PO daily Cardiology on board- Transfer [place] [facility] [place] cath w/ stent placement. F/U recommendations Pulmonary: Maintain O2 Sat >92% stable, continue to monitor Endo: HbA1c 6.4 Maintain euglycemia Novolin sliding scale Acchucheck q4 GI: Diabetic Diet : within normal limits Renal: BUN/Cr: 11/0.6 (07/17) Monitor I/Os Daily CMP Heme: PTT: 50. Cont to monitor coags Daily CBC MSK: Monitor angiography entrance site for signs of hematoma, drainage, erythema, or infection. OOB to chair with assistance Dressing changes Prophylaxis: DVT: ASA 81 mg PO daily, Clopidogrel 75mg PO daily, Heparin drip, GI: Protonix daily Disp: Transfer to [facility] [place] for cath w/ stent placement. Will return afterwards <Yen Baker - Last Filed: 07/17/16 15:14> CCU Subjective - Physician Review Events Since Last Encounter (Free Text): 07/17/16 15:13 patient admitted to the hospital with a non-ST elevation OR. And then underwent a angiogram. Patient is currently chest pain-free. Receiving heparin drip. Clinically stable at this time. Discussed with ICU team, and also PMD. Patient will be transferred to [facility] for possible angiographic intervention. Patient has a history of CAD, also stent in the past. Hypertension. Clinically patient is stable. He will be transferred. Follow-up as needed. i agree with the resident note for further management. Patient is currently on beta marco aspirin and Plavix as well as heparin drip. CCU Objective - Vital Signs / Intake & Output Vital Signs (Last 4 hours): Vital Signs Temp Pulse Resp BP Pulse Ox 07/17/16 15:00 72 24 93 L 07/17/16 14:58 80 21 99/64 L 95 07/17/16 14:43 75 23 87/51 L 96 07/17/16 14:42 73 24 96 07/17/16 14:15 84 20 95 07/17/16 14:00 77 27 H 97 07/17/16 13:00 81 20 97/60 L 98 07/17/16 12:55 79 12 96 07/17/16 12:02 79 27 H 95 07/17/16 12:00 98.5 F 81 26 H 103/65 96 07/17/16 11:34 80 23 92 L Intake and Output (Last 8hrs): Intake & Output 07/17/16 07/17/16 07/17/16 06:59 14:59 22:59 Intake Total 97.2 247.2 5.9 Output Total 200 350 Balance -102.8 -102.8 5.9 Weight 146 lb Intake: Intake, IV Amount 47.2 47.2 5.9 Left Forearm 47.2 47.2 5.9 Oral 50 200 Output: Urine 200 350 Urine, Voided 200 350 Other: # Voids Urine, Voided 0 0 # Bowel Movements 0 - Medications Active Medications: Active Medications Generic Name Dose Route Start Last Admin Trade Name Jaydenq PRN Reason Stop Dose Admin Aspirin 81 mg 07/14/16 10:00 07/17/16 09:15 Aspirin Chewable PO 81 mg DAILY [facility] Administration Clopidogrel Bisulfate 75 mg 07/14/16 10:00 07/17/16 09:15 Plavix PO 75 mg DAILY [facility] Administration Docusate Sodium 100 mg 07/15/16 10:00 07/17/16 09:15 Colace PO 100 mg DAILY [facility] Administration Heparin Sodium/Sodium Chloride 250 mls @ 3.854 mls/hr 07/16/16 00:35 07/16/16 09:34 Heparin 69922 Units/250ml 1/2 Normal Saline IV 5.879 mls/hr .Q24H PRN Administration PROTOCOL Protocol 5.9 UNITS/KG/HR Lisinopril 5 mg 07/14/16 10:00 07/17/16 10:54 Zestril PO Not Given DAILY [facility] Metoprolol Tartrate 25 mg 07/15/16 10:00 07/17/16 09:15 Lopressor PO Not Given BID [facility]A Pantoprazole Sodium 40 mg 07/15/16 10:00 07/17/16 09:15 Protonix Ec Tab PO 40 mg DAILY [facility] Administration Rosuvastatin Calcium 5 mg 07/14/16 22:00 07/16/16 22:00 Crestor PO 5 mg HS [facility] Administration - Patient Studies Lab Studies: Lab Studies 07/17/16 07/17/16 07/17/16 Range/Units 11:57 08:47 06:21 WBC 4.4 L (4.8-10.8) K/uL RBC 4.77 (4.40-5.90) Mil/uL Hgb 15.1 (12.0-18.0) g/dL Hct 43.0 (35.0-51.0) % MCV 90.3 (80.0-94.0) fL MCH 31.6 H (27.0-31.0) pg MCHC 35.0 (33.0-37.0) g/dL RDW 13.9 (11.5-14.5) % Plt Count 131 (130-400) K/uL MPV 7.3 (7.2-11.7) fL Neut % (Auto) 60.1 (50.0-75.0) % Lymph % (Auto) 25.4 (20.0-40.0) % [place] % (Auto) 10.6 H (0.0-10.0) % Eos % (Auto) 3.6 (0.0-4.0) % Baso % (Auto) 0.3 (0.0-2.0) % Neut # 2.7 (1.8-7.0) K/uL Lymph # 1.1 (1.0-4.3) K/uL [place] # 0.5 (0.0-0.8) K/uL Eos # 0.2 (0.0-0.7) K/uL Baso # 0.0 (0.0-0.2) K/uL APTT 50 H (21-34) SECONDS Sodium 134 (132-148) mmol/L Potassium 3.8 (3.6-5.2) mmol/L Chloride 97 L (98-107) mmol/L Carbon Dioxide 24 (22-30) mmol/L Anion Gap 17 (10-20) BUN 12 (9-20) mg/dL Creatinine 0.6 L (0.8-1.5) MG/DL Est GFR ( Amer) > 60 Est GFR (Non-Af Amer) > 60 POC Glucose (mg/dL) 196 H 121 H (65-110) mg/dL Random Glucose 113 H (75-110) mg/dL Calcium 8.3 L (8.6-10.4) mg/dl Phosphorus 3.7 (2.5-4.5) mg/dL Magnesium 2.1 (1.6-2.3) mg/dL Total Bilirubin 0.8 (0.2-1.3) mg/dL AST 66 H D (17-59) U/L ALT 31 (21-72) U/L Alkaline Phosphatase 61 (38-126) U/L Total Protein 7.2 (6.3-8.3) g/dL Albumin 3.9 (3.5-5.0) g/dL Globulin 3.3 (2.2-3.9) gm/dL Albumin/Globulin Ratio 1.2 (1.0-2.1) 07/16/16 07/16/16 Range/Units 21:20 15:52 WBC (4.8-10.8) K/uL RBC (4.40-5.90) Mil/uL Hgb (12.0-18.0) g/dL Hct (35.0-51.0) % MCV (80.0-94.0) fL MCH (27.0-31.0) pg MCHC (33.0-37.0) g/dL RDW (11.5-14.5) % Plt Count (130-400) K/uL MPV (7.2-11.7) fL Neut % (Auto) (50.0-75.0) % Lymph % (Auto) (20.0-40.0) % [place] % (Auto) (0.0-10.0) % Eos % (Auto) (0.0-4.0) % Baso % (Auto) (0.0-2.0) % Neut # (1.8-7.0) K/uL Lymph # (1.0-4.3) K/uL [place] # (0.0-0.8) K/uL Eos # (0.0-0.7) K/uL Baso # (0.0-0.2) K/uL APTT (21-34) SECONDS Sodium (132-148) mmol/L Potassium (3.6-5.2) mmol/L Chloride (98-107) mmol/L Carbon Dioxide (22-30) mmol/L Anion Gap (10-20) BUN (9-20) mg/dL Creatinine (0.8-1.5) MG/DL Est GFR ( Amer) Est GFR (Non-Af Amer) POC Glucose (mg/dL) 130 H 118 H (65-110) mg/dL Random Glucose (75-110) mg/dL Calcium (8.6-10.4) mg/dl Phosphorus (2.5-4.5) mg/dL Magnesium (1.6-2.3) mg/dL Total Bilirubin (0.2-1.3) mg/dL AST (17-59) U/L ALT (21-72) U/L Alkaline Phosphatase (38-126) U/L Total Protein (6.3-8.3) g/dL Albumin (3.5-5.0) g/dL Globulin (2.2-3.9) gm/dL Albumin/Globulin Ratio (1.0-2.1) Laboratory Results - last 24 hr 07/16/16 07/16/16 07/17/16 15:52 21:20 06:21 WBC 4.4 L RBC 4.77 Hgb 15.1 Hct 43.0 MCV 90.3 MCH 31.6 H MCHC 35.0 RDW 13.9 Plt Count 131 MPV 7.3 Neut % (Auto) 60.1 Lymph % (Auto) 25.4 [place] % (Auto) 10.6 H Eos % (Auto) 3.6 Baso % (Auto) 0.3 Neut # 2.7 Lymph # 1.1 [place] # 0.5 Eos # 0.2 Baso # 0.0 APTT 50 H Sodium 134 Potassium 3.8 Chloride 97 L Carbon Dioxide 24 Anion Gap 17 BUN 12 Creatinine 0.6 L Est GFR ( Amer) > 60 Est GFR (Non-Af Amer) > 60 POC Glucose (mg/dL) 118 H 130 H Random Glucose 113 H Calcium 8.3 L Phosphorus 3.7 Magnesium 2.1 Total Bilirubin 0.8 AST 66 H D ALT 31 Alkaline Phosphatase 61 Total Protein 7.2 Albumin 3.9 Globulin 3.3 Albumin/Globulin Ratio 1.2 07/17/16 07/17/16 08:47 11:57 WBC RBC Hgb Hct MCV MCH MCHC RDW Plt Count MPV Neut % (Auto) Lymph % (Auto) [place] % (Auto) Eos % (Auto) Baso % (Auto) Neut # Lymph # [place] # Eos # Baso # APTT Sodium Potassium Chloride Carbon Dioxide Anion Gap BUN Creatinine Est GFR ( Amer) Est GFR (Non-Af Amer) POC Glucose (mg/dL) 121 H 196 H Random Glucose Calcium Phosphorus Magnesium Total Bilirubin AST ALT Alkaline Phosphatase Total Protein Albumin Globulin Albumin/Globulin Ratio Critical Care Progress Note - Nutrition Nutrition: Nutrition Category Date Time Status NPO Diet [DIET] Diets 07/17/16 Lunch Active
[2016-07-17] MEDS: Pantoprazole 40 mg EC Tab PO SCH (09:15)
--- NOTE | 2016-07-17 12:14 | CP.PCM.PN ---
Subjective - Date & Time of Evaluation Date of Evaluation: 07/17/16 Time of Evaluation: 12:00 - Subjective Subjective: Post non-ST elevation myocardial infarction, no further chest pain no arrhythmia or heart failure, with high to me to score for intervention on the circumflex that is probably the culprit lesion, to stenting the proximal LAD is patent with stenosis proximal to that involving the first septal banking officer. For staged angioplasty versus stress test to evaluate ischemia and proximal LAD. Objective - Vital Signs/Intake and Output Vital Signs (last 24 hours): Temp Pulse Resp BP Pulse Ox 98.5 F 81 26 H 103/65 96 07/17/16 12:00 07/17/16 12:00 07/17/16 12:00 07/17/16 12:00 07/17/16 12:00 Intake and Output: 07/17/16 07/17/16 06:59 18:59 Intake Total 220.8 235.4 Output Total 700 100 Balance -479.2 135.4 - Medications Medications: Current Medications Aspirin (Aspirin Chewable) 81 mg PO DAILY [facility] Last Admin: 07/17/16 09:15 Dose: 81 mg Clopidogrel Bisulfate (Plavix) 75 mg PO DAILY [facility] Last Admin: 07/17/16 09:15 Dose: 75 mg Docusate Sodium (Colace) 100 mg PO DAILY [facility] Last Admin: 07/17/16 09:15 Dose: 100 mg Heparin Sodium/Sodium Chloride (Heparin 77712 Units/250ml 1/2 Normal Saline) 250 mls @ 3.854 mls/hr IV .Q24H PRN; Protocol; 5.9 UNITS/KG/HR PRN Reason: PROTOCOL Last Admin: 07/16/16 09:34 Dose: 5.879 mls/hr Lisinopril (Zestril) 5 mg PO DAILY [facility] Last Admin: 07/17/16 10:54 Dose: Not Given Metoprolol Tartrate (Lopressor) 25 mg PO BID [facility] Last Admin: 07/17/16 09:15 Dose: Not Given Pantoprazole Sodium (Protonix Ec Tab) 40 mg PO DAILY [facility] Last Admin: 07/17/16 09:15 Dose: 40 mg Rosuvastatin Calcium (Crestor) 5 mg PO HS [facility] Last Admin: 07/16/16 22:00 Dose: 5 mg - Labs Labs: 07/17/16 06:21 07/17/16 06:21 PT 11.4 SECONDS (9.7-12.2) 07/13/16 16:30 INR 1.0 07/13/16 16:30 APTT 50 SECONDS (21-34) H 07/17/16 06:21 - Constitutional Appears: Non-toxic - Head Exam Head Exam: ATRAUMATIC - Eye Exam Eye Exam: EOMI - ENT Exam ENT Exam: Mucous Membranes Moist - Neck Exam Neck Exam: absent: Lymphadenopathy, Thyromegaly - Respiratory Exam Respiratory Exam: Clear to Ausculation Bilateral. absent: Rales - Cardiovascular Exam Cardiovascular Exam: REGULAR RHYTHM, Murmur - GI/Abdominal Exam GI & Abdominal Exam: Normal Bowel Sounds. absent: Organomegaly - Rectal Exam Rectal Exam: Deferred - Extremities Exam Extremities Exam: Normal Capillary Refill. absent: Calf Tenderness - Neurological Exam Neurological Exam: Alert, Oriented x3 - Psychiatric Exam Psychiatric exam: Normal Mood - Skin Skin Exam: Dry Assessment and Plan (1) Elevated troponin I measurement Status: Acute (2) Diabetes 1.5, managed as type 2 Status: Chronic (3) Hypertension Status: Chronic
--- NOTE | 2016-07-17 17:26 | CP.PCM.PN ---
Subjective - Date & Time of Evaluation Date of Evaluation: 07/17/16 Time of Evaluation: :20 - Subjective Subjective: clinically same Objective - Vital Signs/Intake and Output Vital Signs (last 24 hours): Temp Pulse Resp BP Pulse Ox 98.5 F 72 24 99/64 L 93 L 07/17/16 12:00 07/17/16 15:00 07/17/16 15:00 07/17/16 14:58 07/17/16 15:00 Intake and Output: 07/17/16 07/17/16 06:59 18:59 Intake Total 220.8 253.1 Output Total 700 350 Balance -479.2 -96.9 - Medications Medications: Current Medications Aspirin (Aspirin Chewable) 81 mg PO DAILY [facility] Last Admin: 07/17/16 09:15 Dose: 81 mg Clopidogrel Bisulfate (Plavix) 75 mg PO DAILY [facility] Last Admin: 07/17/16 09:15 Dose: 75 mg Docusate Sodium (Colace) 100 mg PO DAILY [facility] Last Admin: 07/17/16 09:15 Dose: 100 mg Heparin Sodium/Sodium Chloride (Heparin 83422 Units/250ml 1/2 Normal Saline) 250 mls @ 3.854 mls/hr IV .Q24H PRN; Protocol; 5.9 UNITS/KG/HR PRN Reason: PROTOCOL Last Admin: 07/16/16 09:34 Dose: 5.879 mls/hr Lisinopril (Zestril) 5 mg PO DAILY [facility] Last Admin: 07/17/16 10:54 Dose: Not Given Metoprolol Tartrate (Lopressor) 25 mg PO BID [facility] Last Admin: 07/17/16 09:15 Dose: Not Given Pantoprazole Sodium (Protonix Ec Tab) 40 mg PO DAILY [facility] Last Admin: 07/17/16 09:15 Dose: 40 mg Rosuvastatin Calcium (Crestor) 5 mg PO HS [facility] Last Admin: 07/16/16 22:00 Dose: 5 mg - Labs Labs: 07/17/16 06:21 07/17/16 06:21 PT 11.4 SECONDS (9.7-12.2) 07/13/16 16:30 INR 1.0 07/13/16 16:30 APTT 50 SECONDS (21-34) H 07/17/16 06:21 - Constitutional Appears: Well - Head Exam Head Exam: ATRAUMATIC, NORMAL INSPECTION, NORMOCEPHALIC - Eye Exam Eye Exam: EOMI, Normal appearance, PERRL Pupil Exam: NORMAL ACCOMODATION, PERRL - ENT Exam ENT Exam: Mucous Membranes Moist, Normal Exam - Neck Exam Neck Exam: Full ROM, Normal Inspection. absent: Lymphadenopathy - Respiratory Exam Respiratory Exam: Decreased Breath Sounds - Cardiovascular Exam Cardiovascular Exam: REGULAR RHYTHM, +S1, +S2 - GI/Abdominal Exam GI & Abdominal Exam: Soft, Diminished Bowel Sounds - Rectal Exam Rectal Exam: Deferred
[2016-07-18 06:48] LABS: CHLORIDE 97 mmol/L (98-107); POTASSIUM 3.9 mmol/L (3.6-5.2); SODIUM 136 mmol/L (132-148)
[2016-07-18 06:50] LABS: ALB/GLOB RATIO 1.2 (1.0-2.1); ALKALINE PHOSPHATASE 59 U/L (38-126); AST/SGOT 49 U/L (17-59); BILIRUBIN,TOTAL 0.8 mg/dL (0.2-1.3); BLOOD UREA NITROGEN 14 mg/dL (9-20); CARBON DIOXIDE 26 mmol/L (22-30); GFR AFRICAN-AMERICAN > 60; TOTAL PROTEIN 6.9 g/dL (6.3-8.3)
[2016-07-18 06:51] LABS: ALT/SGPT 31 U/L (21-72); CALCIUM 8.2 mg/dl (8.6-10.4); GLUCOSE,RANDOM 99 mg/dL (75-110); MAGNESIUM 2.1 mg/dL (1.6-2.3); PHOSPHOROUS 3.8 mg/dL (2.5-4.5)
[2016-07-18 07:02] LABS: EOS # 0.2 K/uL (0.0-0.7); MEAN PLATELET VOLUME 7.6 fL (7.2-11.7)
[2016-07-18 07:51] LABS: BASO % 0.5 % (0.0-2.0); HEMATOCRIT 43.5 % (35.0-51.0); LYMPH # 1.2 K/uL (1.0-4.3); LYMPH % 25.6 % (20.0-40.0); MEAN CELL VOLUME 91.5 fL (80.0-94.0); MEAN CORPUSCULAR HEMOGLOBIN 31.3 pg (27.0-31.0); MEAN CORPUSCULAR HGB CONC 34.3 g/dL (33.0-37.0); MONO # 0.5 K/uL (0.0-0.8); MONO % 10.4 % (0.0-10.0); RED CELL DISTRIBUTION WIDTH 13.6 % (11.5-14.5); WHITE BLOOD COUNT 4.9 K/uL (4.8-10.8)
[2016-07-18] MEDS: Pantoprazole 40 mg EC Tab PO SCH (09:39)
[2016-07-18 11:52] VITALS: O2SAT 97
[2016-07-18 15:02] VITALS: BP 101/57; PULSE 67; RESP 17; TEMP 97.3
--- NOTE | 2016-07-18 15:09 | CP.CCUPN ---
<HalieAdrianaojedenilson - Last Filed: 07/18/16 15:13> CCU Subjective - Physician Review Subjective (Free Text): 07/17/16 11:21 Pt seen and examined in no acute distress. Patient denies any pain or palpitations at this time. Patient has a poor appetite but states that he generally does not eat much day to day even when he feels well. Patient denies any subjective fevers or chills, nausea, vomiting, diarrhea or constipation at this time. 07/18/16 15:10 Pt seen and examined in no acute distress. Patient tolerating a diet. Pt is s/ p PCI procedure yesterday. He states that he would like to go home. Patient denies any chest pain, palpitations, subjective fevers, chills, nausea, vomiting , nausea, diarrhea, paresthesias, or headaches at this time. CCU Objective - Vital Signs / Intake & Output Vital Signs (Last 4 hours): Vital Signs Temp Pulse Resp BP Pulse Ox 07/18/16 15:00 67 17 97 07/18/16 14:52 88 22 101/57 L 95 07/18/16 14:00 65 15 96 07/18/16 13:55 68 17 101/65 97 07/18/16 13:52 66 25 H 101/65 96 07/18/16 13:00 74 18 97 07/18/16 12:53 69 19 100/58 L 96 07/18/16 12:00 97.3 F L 84 22 97 07/18/16 11:52 57 L 22 95/51 L 96 Intake and Output (Last 8hrs): Intake & Output 07/18/16 07/18/16 07/18/16 06:59 14:59 22:59 Intake Total 340 60 Output Total 300 150 0 Balance -300 190 60 Intake: Oral 340 60 Output: Urine 300 150 Urine, Voided 300 150 Emesis 0 0 0 Other: # Bowel Movements 0 0 - Physical Exam Head: Positive for: Atraumatic, Normocephalic Pupils: Positive for: PERRL Extroacular Muscles: Positive for: EOMI Conjunctiva: Positive for: Normal Mouth: Positive for: Moist Mucous Membranes Neck: Positive for: Normal Range of Motion Respiratory/Chest: Positive for: Clear to Auscultation. Negative for: Wheezes Cardiovascular: Positive for: Regular Rate and Rhythm Abdomen: Positive for: Normal Bowel Sounds Upper Extremity: Positive for: Normal Inspection Lower Extremity: Positive for: Normal Inspection Neurological: Positive for: CN II-XII Intact Skin: Positive for: Warm, Dry Psychiatric: Positive for: Alert, Oriented x 3 - Medications Active Medications: Active Medications Generic Name Dose Route Start Last Admin Trade Name Freq PRN Reason Stop Dose Admin Acetaminophen 650 mg 07/18/16 06:15 Tylenol 325mg Tab PO Q4 PRN Pain, Mild (1-3) Aspirin 81 mg 07/14/16 10:00 07/18/16 09:39 Aspirin Chewable PO 81 mg DAILY [facility] Administration Clopidogrel Bisulfate 75 mg 07/14/16 10:00 07/18/16 09:40 Plavix PO 75 mg DAILY [facility] Administration Docusate Sodium 100 mg 07/15/16 10:00 07/18/16 09:39 Colace PO 100 mg DAILY [facility] Administration Famotidine 20 mg 07/18/16 10:15 07/18/16 12:36 Pepcid PO 20 mg BID [facility] Administration Heparin Sodium/Sodium Chloride 250 mls @ 3.854 mls/hr 07/16/16 00:35 07/16/16 09:34 Heparin 57346 Units/250ml 1/2 Normal Saline IV 5.879 mls/hr .Q24H PRN Administration PROTOCOL Protocol 5.9 UNITS/KG/HR Lisinopril 5 mg 07/14/16 10:00 07/18/16 09:40 Zestril PO 5 mg DAILY [facility] Administration Metoprolol Tartrate 25 mg 07/15/16 10:00 07/18/16 09:39 Lopressor PO 25 mg BID [facility] Administration Rosuvastatin Calcium 5 mg 07/14/16 22:00 07/16/16 22:00 Crestor PO 5 mg HS [facility] Administration - Patient Studies Lab Studies: Lab Studies 07/18/16 07/18/16 Range/Units 12:22 06:30 WBC 4.9 (4.8-10.8) K/uL RBC 4.76 (4.40-5.90) Mil/uL Hgb 14.9 (12.0-18.0) g/dL Hct 43.5 (35.0-51.0) % MCV 91.5 (80.0-94.0) fL MCH 31.3 H (27.0-31.0) pg MCHC 34.3 (33.0-37.0) g/dL RDW 13.6 (11.5-14.5) % Plt Count 130 (130-400) K/uL MPV 7.6 (7.2-11.7) fL Neut % (Auto) 58.5 (50.0-75.0) % Lymph % (Auto) 25.6 (20.0-40.0) % York % (Auto) 10.4 H (0.0-10.0) % Eos % (Auto) 5.0 H (0.0-4.0) % Baso % (Auto) 0.5 (0.0-2.0) % Neut # 2.9 (1.8-7.0) K/uL Lymph # 1.2 (1.0-4.3) K/uL York # 0.5 (0.0-0.8) K/uL Eos # 0.2 (0.0-0.7) K/uL Baso # 0.0 (0.0-0.2) K/uL Sodium 136 (132-148) mmol/L Potassium 3.9 (3.6-5.2) mmol/L Chloride 97 L (98-107) mmol/L Carbon Dioxide 26 (22-30) mmol/L Anion Gap 17 (10-20) BUN 14 (9-20) mg/dL Creatinine 0.6 L (0.8-1.5) MG/DL Est GFR ( Amer) > 60 Est GFR (Non-Af Amer) > 60 POC Glucose (mg/dL) 114 H (65-110) mg/dL Random Glucose 99 (75-110) mg/dL Calcium 8.2 L (8.6-10.4) mg/dl Phosphorus 3.8 (2.5-4.5) mg/dL Magnesium 2.1 (1.6-2.3) mg/dL Total Bilirubin 0.8 (0.2-1.3) mg/dL AST 49 (17-59) U/L ALT 31 (21-72) U/L Alkaline Phosphatase 59 (38-126) U/L Troponin I 5.7300 H* (0.00-0.120) ng/mL Total Protein 6.9 (6.3-8.3) g/dL Albumin 3.8 (3.5-5.0) g/dL Globulin 3.2 (2.2-3.9) gm/dL Albumin/Globulin Ratio 1.2 (1.0-2.1) Laboratory Results - last 24 hr 07/18/16 07/18/16 06:30 12:22 WBC 4.9 RBC 4.76 Hgb 14.9 Hct 43.5 MCV 91.5 MCH 31.3 H MCHC 34.3 RDW 13.6 Plt Count 130 MPV 7.6 Neut % (Auto) 58.5 Lymph % (Auto) 25.6 York % (Auto) 10.4 H Eos % (Auto) 5.0 H Baso % (Auto) 0.5 Neut # 2.9 Lymph # 1.2 York # 0.5 Eos # 0.2 Baso # 0.0 Sodium 136 Potassium 3.9 Chloride 97 L Carbon Dioxide 26 Anion Gap 17 BUN 14 Creatinine 0.6 L Est GFR ( Amer) > 60 Est GFR (Non-Af Amer) > 60 POC Glucose (mg/dL) 114 H Random Glucose 99 Calcium 8.2 L Phosphorus 3.8 Magnesium 2.1 Total Bilirubin 0.8 AST 49 ALT 31 Alkaline Phosphatase 59 Troponin I 5.7300 H* Total Protein 6.9 Albumin 3.8 Globulin 3.2 Albumin/Globulin Ratio 1.2 EKG/Cardiology Studies: Cardiology / EKG Studies 07/18/16 04:00 ELECTROCARDIOGRAM Routine Comment: Mode Of Transportation: BED Reason For Exam: post PCI Fingerstick Blood Sugar Results: 196 Review of Systems - Review of Systems Review of Systems: as noted in subjective Critical Care Progress Note - Nutrition Nutrition: Nutrition Category Date Time Status 2gm [Heart Healthy Diet] [DIET] Diets 07/18/16 Breakfast Active Assessment/Plan - Assessment and Plan (Free Text) Assessment: 80 M with extensive cardiac history inclusive of two prior stents to the LAD and right coronary artery presents with diaphoresis and chest discomfort. Pt is s/p angiogram with findings of a complex lesion of the entire mid-circumflex artery segment and 80% stenosis of proximal LAD before the mid LAD stent. Pt is s/p PCI at [facility] on 07/17. Pt improving. Plan: Neuro: Neurochecks q6 Cardio: HTN Possible NSTEMI Troponin I 46.1000>32.3000 dec to 5.7300 on 07/18 (downtrending) CK-MB 197>97.0 Creatine Kinase 2603>1151 Procedures: 07/14 Angiogram: Dr. Diggs - Complex lesion of the entire mid- circumflex artery segment. 80% stenosis of proximal LAD before the mid LAD stent involving the ostium of the first diagonal branch. Estimated EF 50% Imagin/16 EKG: NSR @ 64 bpm with inferior infarct of undetermined age. 07/[address] Min report of ST in the field. Non at the ED. No further CP, mildly elevated TNI, good compliance, A1c, lipids, doubt PR, observe. Crestor 5 mg PO HS [facility], Lopressor 25 mg BID ( hold parameters for systolic below 100 and HR below 60),Zestril 5 mg PO daily, Plavix 75 mg PO daily Cardiology on board- Transfer to [facility] for cath w/ stent placement. Tolerated procedure well. Management per Cardiology Pulmonary: Maintain O2 Sat >92% stable, continue to monitor Endo: HbA1c 6.4 Maintain euglycemia Novolin sliding scale Acchucheck q4 GI: Heart Healthy Diet : within normal limits Renal: BUN/Cr: stable Monitor I/Os Daily CMP Heme: PTT: 50. Cont to monitor coags Daily CBC MSK: Monitor angiography entrance site for signs of hematoma, drainage, erythema, or infection. OOB to chair with assistance Dressing changes Prophylaxis: DVT: ASA 81 mg PO daily, Clopidogrel 75mg PO daily, Heparin drip, GI: Protonix daily <Michael Hernandez - Last Filed: 07/18/16 17:54> CCU Objective - Vital Signs / Intake & Output Vital Signs (Last 4 hours): Vital Signs Pulse Resp BP Pulse Ox 07/18/16 15:00 67 17 97 07/18/16 14:52 88 22 101/57 L 95 07/18/16 14:00 65 15 96 07/18/16 13:55 68 17 101/65 97 Intake and Output (Last 8hrs): Intake & Output 07/18/16 07/18/16 07/18/16 06:59 14:59 22:59 Intake Total 340 60 Output Total 300 150 0 Balance -300 190 60 Intake: Oral 340 60 Output: Urine 300 150 Urine, Voided 300 150 Emesis 0 0 0 Other: # Bowel Movements 0 0 - Medications Active Medications: Active Medications Generic Name Dose Route Start Last Admin Trade Name Freq PRN Reason Stop Dose Admin Acetaminophen 650 mg 07/18/16 06:15 Tylenol 325mg Tab PO Q4 PRN Pain, Mild (1-3) Aspirin 81 mg 07/14/16 10:00 07/18/16 09:39 Aspirin Chewable PO 81 mg DAILY [facility] Administration Clopidogrel Bisulfate 75 mg 07/14/16 10:00 07/18/16 09:40 Plavix PO 75 mg DAILY [facility] Administration Docusate Sodium 100 mg 07/15/16 10:00 07/18/16 09:39 Colace PO 100 mg DAILY [facility] Administration Famotidine 20 mg 07/18/16 10:15 07/18/16 12:36 Pepcid PO 20 mg BID [facility] Administration Heparin Sodium/Sodium Chloride 250 mls @ 3.854 mls/hr 07/16/16 00:35 07/16/16 09:34 Heparin 60667 Units/250ml 1/2 Normal Saline IV 5.879 mls/hr .Q24H PRN Administration PROTOCOL Protocol 5.9 UNITS/KG/HR Lisinopril 5 mg 07/14/16 10:00 07/18/16 09:40 Zestril PO 5 mg DAILY [facility] Administration Metoprolol Tartrate 25 mg 07/15/16 10:00 07/18/16 09:39 Lopressor PO 25 mg BID [facility] Administration Rosuvastatin Calcium 5 mg 07/14/16 22:00 07/16/16 22:00 Crestor PO 5 mg HS [facility] Administration - Patient Studies Lab Studies: Lab Studies 07/18/16 07/18/16 Range/Units 12:22 06:30 WBC 4.9 (4.8-10.8) K/uL RBC 4.76 (4.40-5.90) Mil/uL Hgb 14.9 (12.0-18.0) g/dL Hct 43.5 (35.0-51.0) % MCV 91.5 (80.0-94.0) fL MCH 31.3 H (27.0-31.0) pg MCHC 34.3 (33.0-37.0) g/dL RDW 13.6 (11.5-14.5) % Plt Count 130 (130-400) K/uL MPV 7.6 (7.2-11.7) fL Neut % (Auto) 58.5 (50.0-75.0) % Lymph % (Auto) 25.6 (20.0-40.0) % York % (Auto) 10.4 H (0.0-10.0) % Eos % (Auto) 5.0 H (0.0-4.0) % Baso % (Auto) 0.5 (0.0-2.0) % Neut # 2.9 (1.8-7.0) K/uL Lymph # 1.2 (1.0-4.3) K/uL York # 0.5 (0.0-0.8) K/uL Eos # 0.2 (0.0-0.7) K/uL Baso # 0.0 (0.0-0.2) K/uL Sodium 136 (132-148) mmol/L Potassium 3.9 (3.6-5.2) mmol/L Chloride 97 L (98-107) mmol/L Carbon Dioxide 26 (22-30) mmol/L Anion Gap 17 (10-20) BUN 14 (9-20) mg/dL Creatinine 0.6 L (0.8-1.5) MG/DL Est GFR ( Amer) > 60 Est GFR (Non-Af Amer) > 60 POC Glucose (mg/dL) 114 H (65-110) mg/dL Random Glucose 99 (75-110) mg/dL Calcium 8.2 L (8.6-10.4) mg/dl Phosphorus 3.8 (2.5-4.5) mg/dL Magnesium 2.1 (1.6-2.3) mg/dL Total Bilirubin 0.8 (0.2-1.3) mg/dL AST 49 (17-59) U/L ALT 31 (21-72) U/L Alkaline Phosphatase 59 (38-126) U/L Troponin I 5.7300 H* (0.00-0.120) ng/mL Total Protein 6.9 (6.3-8.3) g/dL Albumin 3.8 (3.5-5.0) g/dL Globulin 3.2 (2.2-3.9) gm/dL Albumin/Globulin Ratio 1.2 (1.0-2.1) Laboratory Results - last 24 hr 07/18/16 07/18/16 06:30 12:22 WBC 4.9 RBC 4.76 Hgb 14.9 Hct 43.5 MCV 91.5 MCH 31.3 H MCHC 34.3 RDW 13.6 Plt Count 130 MPV 7.6 Neut % (Auto) 58.5 Lymph % (Auto) 25.6 York % (Auto) 10.4 H Eos % (Auto) 5.0 H Baso % (Auto) 0.5 Neut # 2.9 Lymph # 1.2 York # 0.5 Eos # 0.2 Baso # 0.0 Sodium 136 Potassium 3.9 Chloride 97 L Carbon Dioxide 26 Anion Gap 17 BUN 14 Creatinine 0.6 L Est GFR ( Amer) > 60 Est GFR (Non-Af Amer) > 60 POC Glucose (mg/dL) 114 H Random Glucose 99 Calcium 8.2 L Phosphorus 3.8 Magnesium 2.1 Total Bilirubin 0.8 AST 49 ALT 31 Alkaline Phosphatase 59 Troponin I 5.7300 H* Total Protein 6.9 Albumin 3.8 Globulin 3.2 Albumin/Globulin Ratio 1.2 EKG/Cardiology Studies: Cardiology / EKG Studies 07/18/16 04:00 ELECTROCARDIOGRAM Routine Comment: Mode Of Transportation: BED Reason For Exam: post PCI Critical Care Progress Note - Nutrition Nutrition: Nutrition Category Date Time Status 2gm [Heart Healthy Diet] [DIET] Diets 07/18/16 Breakfast Active Assessment/Plan (1) NSTEMI (non-ST elevated myocardial infarction) Current Visit: Yes Status: Acute Comment: Troponin I 46.1000>32.3000 Procedures: 07/14 Angiogram: Dr. Diggs - Complex lesion of the entire mid- circumflex artery segment. 80% stenosis of proximal LAD before the mid LAD stent involving the ostium of the first diagonal branch. Estimated EF 50% Crestor 5 mg PO HS [facility], Lopressor 25 mg BID ( hold parameters for systolic below 100 and HR below 60),Zestril 5 mg PO daily Attending/Attestation - Attestation I have personally seen and examined this patient.: Yes I have fully participated in the care of the patient.: Yes I have reviewed all pertinent clinical information: Yes Notes (Text): 03/21/17 17:54 Patient seen and examined in the intensive care unit. Case discussed with staff in the morning rounds. 80 M with extensive cardiac history inclusive of two prior stents to the LAD and right coronary artery presents with diaphoresis and chest discomfort. Pt is s/p angiogram with findings of a complex lesion of the entire mid-circumflex artery segment and 80% stenosis of proximal LAD before the mid LAD stent. Pt is s/p PCI at [facility] on 07/17. Pt improving Patient discharged to home by cardiology
--- NOTE | 2016-07-18 15:44 | PN ---
DATE: 07/18/2016 SUBJECTIVE: The patient denies any chest pain or shortness of breath. No groin bleeding. PHYSICAL EXAMINATION: VITAL SIGNS: Blood pressure 101/57, heart rate 65, ____, temperature 97.3. HEENT: Normocephalic. NECK: No JVD. CHEST: Clear. HEART: S1, S2 regular. EXTREMITIES: No hematoma, no edema. LABORATORIES: Today's troponin is 5.73. BUN and creatinine 14 and 0.6 respectively. Potassium 3.9. ASSESSMENT: 1. Status post non-ST elevation myocardial infarction and status post stenting to the circumflex art miriam with drug-eluting stent of 2.5 x 32 mm. 2. Hypertension. 3. Hyperlipidemia. RECOMMENDATIONS: The patient can be discharged on aspirin 81 mg once a day, Zestril at 5 mg once a d ay, Plavix 75 mg once a day, Lopressor at 25 mg twice a day, Crestor at 20 mg once a day. I did writ e prescription for all those medications and instructed the patient to strictly comply with his antip latelet therapy for at least 1 year. Garett Diggs MD cc: [id number] TT: 07/18/2016 15:43:16 Confirmation # [id number] Dictation # [id number]
--- NOTE | 2016-07-18 16:49 | CP.PCM.PN ---
Subjective - Date & Time of Evaluation Date of Evaluation: 07/11/16 Time of Evaluation: 01:20 - Subjective Subjective: clinically same Objective - Vital Signs/Intake and Output Vital Signs (last 24 hours): Temp Pulse Resp BP Pulse Ox 97.3 F L 67 17 101/57 L 97 07/18/16 12:00 07/18/16 15:00 07/18/16 15:00 07/18/16 14:52 07/18/16 15:00 Intake and Output: 07/18/16 07/18/16 06:59 18:59 Intake Total 400 Output Total 300 150 Balance -300 250 - Medications Medications: Current Medications Acetaminophen (Tylenol 325mg Tab) 650 mg PO Q4 PRN PRN Reason: Pain, Mild (1-3) Aspirin (Aspirin Chewable) 81 mg PO DAILY [facility] Last Admin: 07/18/16 09:39 Dose: 81 mg Clopidogrel Bisulfate (Plavix) 75 mg PO DAILY [facility] Last Admin: 07/18/16 09:40 Dose: 75 mg Docusate Sodium (Colace) 100 mg PO DAILY [facility] Last Admin: 07/18/16 09:39 Dose: 100 mg Famotidine (Pepcid) 20 mg PO BID [facility] Last Admin: 07/18/16 12:36 Dose: 20 mg Heparin Sodium/Sodium Chloride (Heparin 97972 Units/250ml 1/2 Normal Saline) 250 mls @ 3.854 mls/hr IV .Q24H PRN; Protocol; 5.9 UNITS/KG/HR PRN Reason: PROTOCOL Last Admin: 07/16/16 09:34 Dose: 5.879 mls/hr Lisinopril (Zestril) 5 mg PO DAILY [facility] Last Admin: 07/18/16 09:40 Dose: 5 mg Metoprolol Tartrate (Lopressor) 25 mg PO BID [facility] Last Admin: 07/18/16 09:39 Dose: 25 mg Rosuvastatin Calcium (Crestor) 5 mg PO HS [facility] Last Admin: 07/16/16 22:00 Dose: 5 mg - Labs Labs: 07/18/16 06:30 07/18/16 06:30 PT 11.4 SECONDS (9.7-12.2) 07/13/16 16:30 INR 1.0 07/13/16 16:30 APTT 50 SECONDS (21-34) H 07/17/16 06:21 - Constitutional Appears: Well - Head Exam Head Exam: ATRAUMATIC, NORMAL INSPECTION, NORMOCEPHALIC - Eye Exam Eye Exam: EOMI, Normal appearance, PERRL Pupil Exam: NORMAL ACCOMODATION, PERRL - ENT Exam ENT Exam: Mucous Membranes Moist, Normal Exam - Neck Exam Neck Exam: Full ROM, Normal Inspection. absent: Lymphadenopathy - Respiratory Exam Respiratory Exam: Decreased Breath Sounds - Cardiovascular Exam Cardiovascular Exam: REGULAR RHYTHM, +S1, +S2 - GI/Abdominal Exam GI & Abdominal Exam: Soft, Diminished Bowel Sounds - Rectal Exam Rectal Exam: Deferred
--- NOTE | 2016-07-18 17:01 | CP.PCM.PN ---
Subjective - Date & Time of Evaluation Date of Evaluation: 07/18/16 Time of Evaluation: 13:00 - Subjective Subjective: had PCI by [facility], opened Circ well, good angiographic results, no hematoma, good distal pulse, f/u as outpt Objective - Vital Signs/Intake and Output Vital Signs (last 24 hours): Temp Pulse Resp BP Pulse Ox 97.3 F L 67 17 101/57 L 97 07/18/16 12:00 07/18/16 15:00 07/18/16 15:00 07/18/16 14:52 07/18/16 15:00 Intake and Output: 07/18/16 07/18/16 06:59 18:59 Intake Total 400 Output Total 300 150 Balance -300 250 - Medications Medications: Current Medications Acetaminophen (Tylenol 325mg Tab) 650 mg PO Q4 PRN PRN Reason: Pain, Mild (1-3) Aspirin (Aspirin Chewable) 81 mg PO DAILY [facility] Last Admin: 07/18/16 09:39 Dose: 81 mg Clopidogrel Bisulfate (Plavix) 75 mg PO DAILY [facility] Last Admin: 07/18/16 09:40 Dose: 75 mg Docusate Sodium (Colace) 100 mg PO DAILY [facility] Last Admin: 07/18/16 09:39 Dose: 100 mg Famotidine (Pepcid) 20 mg PO BID [facility] Last Admin: 07/18/16 12:36 Dose: 20 mg Heparin Sodium/Sodium Chloride (Heparin 11699 Units/250ml 1/2 Normal Saline) 250 mls @ 3.854 mls/hr IV .Q24H PRN; Protocol; 5.9 UNITS/KG/HR PRN Reason: PROTOCOL Last Admin: 07/16/16 09:34 Dose: 5.879 mls/hr Lisinopril (Zestril) 5 mg PO DAILY [facility] Last Admin: 07/18/16 09:40 Dose: 5 mg Metoprolol Tartrate (Lopressor) 25 mg PO BID [facility] Last Admin: 07/18/16 09:39 Dose: 25 mg Rosuvastatin Calcium (Crestor) 5 mg PO HS [facility] Last Admin: 07/16/16 22:00 Dose: 5 mg - Labs Labs: 07/18/16 06:30 07/18/16 06:30 PT 11.4 SECONDS (9.7-12.2) 07/13/16 16:30 INR 1.0 07/13/16 16:30 APTT 50 SECONDS (21-34) H 07/17/16 06:21 - Constitutional Appears: Non-toxic - Head Exam Head Exam: ATRAUMATIC - Eye Exam Eye Exam: EOMI - ENT Exam ENT Exam: Mucous Membranes Moist - Neck Exam Neck Exam: absent: Lymphadenopathy, Thyromegaly - Respiratory Exam Respiratory Exam: Clear to Ausculation Bilateral. absent: Rales - Cardiovascular Exam Cardiovascular Exam: REGULAR RHYTHM, Murmur - GI/Abdominal Exam GI & Abdominal Exam: Normal Bowel Sounds. absent: Organomegaly - Rectal Exam Rectal Exam: Deferred - Extremities Exam Extremities Exam: Normal Capillary Refill. absent: Calf Tenderness - Neurological Exam Neurological Exam: Alert, Oriented x3 - Psychiatric Exam Psychiatric exam: Normal Mood - Skin Skin Exam: Dry Assessment and Plan (1) Elevated troponin I measurement Status: Acute (2) Diabetes 1.5, managed as type 2 Status: Chronic (3) Hypertension Status: Chronic
--- NOTE | 2016-07-19 12:06 | CARD ---
APPROVED REPORT EKG Measurement Heart Tecm86RIED CT 148P60 [id number] <Conclusion> Normal sinus rhythm Left anterior fascicular block Inferior infarct, age undetermined Abnormal ECG
== END 2016-07-18 16:30 | disposition home or self-care (01) | DRG 282 ==
LOC: C.ER 16:15 → C.9E 17:36 → C.6T 18:29 → C.9I 07-14 14:36
PROVIDERS: ADMIT Internal Medicine Nephrology; ATTEND Internal Medicine Nephrology
PROC: 4A023N8 Measurement of Cardiac Sampling and Pressure, Bilateral, Percutaneous Approach (ICD-10-PCS; principal; 2016-07-14)
PROC: B2161ZZ Fluoroscopy of Right and Left Heart using Low Osmolar Contrast (ICD-10-PCS; 2016-07-14)
PROC: B2111ZZ Fluoroscopy of Multiple Coronary Arteries using Low Osmolar Contrast (ICD-10-PCS; 2016-07-14)
PROC: B3101ZZ Fluoroscopy of Thoracic Aorta using Low Osmolar Contrast (ICD-10-PCS; 2016-07-14)
DX: I21.4 Non-ST elevation (NSTEMI) myocardial infarction (principal); E11.9 Type 2 diabetes mellitus without complications; Z95.1 Presence of aortocoronary bypass graft; I10 Essential (primary) hypertension; E78.5 Hyperlipidemia, unspecified; E78.00 Pure hypercholesterolemia, unspecified; N40.0 Benign prostatic hyperplasia without lower urinary tract symptoms; Z79.899 Other long term (current) drug therapy; I25.2 Old myocardial infarction; Z80.0 Family history of malignant neoplasm of digestive organs; Z80.8 Family history of malignant neoplasm of other organs or systems; Z87.891 Personal history of nicotine dependence; Z83.3 Family history of diabetes mellitus; Z95.5 Presence of coronary angioplasty implant and graft; Z86.010 Personal history of colon polyps; Z68.21 Body mass index [BMI] 21.0-21.9, adult; I25.110 Atherosclerotic heart disease of native coronary artery with unstable angina pectoris